=== PATIENT | male | born 1940 | race Caucasian/White ===

== ENCOUNTER 2016-11-01 10:20 | Emergency (ER) | payer MEDICARE, BC ==
[2016-11-01 12:09] LABS: Hematocrit 38 % (42-52); Hemoglobin 12.4 g/dl (14.0-18.0); Mean Corpuscular HGB Conc 33 g/dl (31-36); Mean Corpuscular Hemoglobin 30 pg (27-31); Mean Corpuscular Volume 91 fL (80-94); Mean Platelet Volume 10 um3 (7.4-10.4); Red Blood Count 4.13 10^6/ul (4.0-5.4); Red Cell Distribution Width 14 % (10.5-15); White Blood Count 7.4 10^3/ul (3.5-10.8)
[2016-11-01 12:19] LABS: Albumin 3.5 g/dL (3.2-5.2); BUN/Creatinine Ratio 10.4 (8-20); Calcium 8.8 mg/dL (8.6-10.3); EGFR Non-African American 98.8 (>60); Globulin 2.5 g/dL (2-4); Potassium 3.7 mmol/L (3.5-5.0); Total Bilirubin 0.8 mg/dL (0.2-1.0)
[2016-11-01 12:59] VITALS: BP 154/69
--- NOTE | 2016-11-03 07:50 | ED ---
Ady Sparks Benjamin, scribed for Santana Tijerina MD on 11/01/16 at 1217 . GI/ HPI - HPI Summary HPI Summary: 76yo male c/o constant bright red rectal bleeding for 2 days. Pt states very mild pain, and denies any black or bloody stool. Pt does have hx of hemorrhoids in the past, but states that todays symptoms are different than his previous hemorrhoids. Pt also have Hx of DM, CHF, and IRR. - History of Current Complaint Chief Complaint: EDGIBleed Time Seen by Provider: 11/01/16 11:02 Stated Complaint: RECTAL BLEEDING Hx Obtained From: Patient, Family/Medicaid Collection Specialist - Onset/Duration: Started Days Ago - 2 days, Still Present Timing: Constant Severity: Mild Current Severity: Mild Pain Intensity: 2 Location of Pain: Rectal, Anal Associated Signs and Symptoms: Positive: Bright Red Blood w/Stool - Additional Pertinent History Primary Care Physician: NICHOLAS - Allergy/Home Medications Allergies/Adverse Reactions: Allergies Allergy/AdvReac Type Severity Reaction Status Date / Time Penicillins [PCN] Allergy Unknown Verified 11/01/16 10:26 Reaction Details Home Medications: Home Medications Hydrochlorothiazide TAB* [Hydrodiuril TAB*] 25 mg PO DAILY 11/01/16 [History Confirmed 11/01/16] Lisinopril [Lisinopril 40 MG-] 40 mg PO DAILY 11/01/16 [History Confirmed ] Metoprolol Tartrate TAB* [Lopressor TAB*] 50 mg PO BID 11/01/16 [History Confirmed 11/01/16] metFORMIN* [Glucophage*] 850 mg PO BID 11/01/16 [History Confirmed 11/01/16] PMH/Surg Hx/FS Hx/Imm Hx Endocrine/Hematology History: Reports: Hx Diabetes Cardiovascular History: Reports: Hx Coronary Artery Disease, Hx Hypercholesterolemia, Hx Hypertension, Other Cardiovascular Problems/Disorders - irregular heart beat, declined cardiac stents Denies: Hx Congestive Heart Failure Respiratory History: Reports: Hx Pneumonia History: Reports: Hx Kidney Stones Sensory History: Reports: Hx Contacts or Glasses Opthamlomology History: Reports: Hx Contacts or Glasses Infectious Disease History: No Infectious Disease History: Denies: Traveled Outside the [place] in Last 30 Days - Family History Known Family History: Positive: Cardiac Disease - >55, Other - hypotension Negative: Hypertension, Diabetes - Social History Occupation: Retired Lives: With Family Alcohol Use: None Hx Substance Use: No Substance Use Type: Reports: None Hx Tobacco Use: No Smoking Status (MU): Never Smoked Tobacco Review of Systems Constitutional: Negative Eyes: Negative ENT: Negative Cardiovascular: Negative Respiratory: Negative Positive: Other - bright red rectal bleeding Genitourinary: Negative Musculoskeletal: Negative Skin: Negative Neurological: Negative Psychological: Normal All Other Systems Reviewed And Are Negative: Yes Physical Exam Triage Information Reviewed: Yes Vital Signs On Initial Exam: Initial Vitals Temp Pulse Resp BP Pulse Ox 99.2 F 63 16 153/74 100 11/01/16 10:26 11/01/16 10:26 11/01/16 10:26 11/01/16 10:26 11/01/16 10:26 Vital Signs Reviewed: Yes Appearance: Positive: Well-Appearing, No Pain Distress, Well-Nourished Skin: Positive: Warm, Skin Color Reflects Adequate Perfusion, Dry Head/Face: Positive: Normal Head/Face Inspection Eyes: Positive: Normal ENT: Positive: Normal ENT inspection Neck: Positive: Supple, Nontender Respiratory/Lung Sounds: Positive: Clear to Auscultation, Breath Sounds Present Abdomen Description: Positive: Nontender, Soft - RECTAL EXAM: bleeding internal hemorrhoids, Other: Bowel Sounds: Positive: Present Musculoskeletal: Positive: Normal, Strength/ROM Intact Neurological: Positive: Normal, Sensory/Motor Intact, Alert, Oriented to Person Place, Time, CN Intact II-III, Reflexes Intact Psychiatric: Positive: Affect/Mood Appropriate - Heri Coma Scale Coma Scale Total: 15 Diagnostics - Vital Signs Vital Signs Temp Pulse Resp BP Pulse Ox 11/01/16 11:03 57 96 11/01/16 11:01 138/67 11/01/16 10:26 99.2 F 63 16 153/74 100 - Laboratory Lab Results: Lab Results 11/01/16 11/01/16 11/01/16 Range/Units 11:00 11:00 11:00 WBC 7.4 (3.5-10.8) 10^3/ul RBC 4.13 (4.0-5.4) 10^6/ul Hgb 12.4 L (14.0-18.0) g/dl Hct 38 L (42-52) % MCV 91 (80-94) fL MCH 30 (27-31) pg MCHC 33 (31-36) g/dl RDW 14 (10.5-15) % Plt Count 241 (150-450) 10^3/ul MPV 10 (7.4-10.4) um3 Neut % (Auto) 75.1 (38-83) % Lymph % (Auto) 12.3 L (25-47) % [place] % (Auto) 10.7 H (1-9) % Eos % (Auto) 1.2 (0-6) % Baso % (Auto) 0.7 (0-2) % Absolute Neuts (auto) 5.6 (1.5-7.7) 10^3/ul Absolute Lymphs (auto) 0.9 L (1.0-4.8) 10^3/ul Absolute Monos (auto) 0.8 (0-0.8) 10^3/ul Absolute Eos (auto) 0.1 (0-0.6) 10^3/ul Absolute Basos (auto) 0.1 (0-0.2) 10^3/ul Absolute Nucleated RBC 0.01 10^3/ul Nucleated RBC % 0.1 INR (Anticoag Therapy) 1.21 H (0.89-1.11) Sodium 135 (133-145) mmol/L Potassium 3.7 (3.5-5.0) mmol/L Chloride 104 (101-111) mmol/L Carbon Dioxide 27 (22-32) mmol/L Anion Gap 4 (2-11) mmol/L BUN 8 (6-24) mg/dL Creatinine 0.77 (0.67-1.17) mg/dL Est GFR ( Amer) 127.0 (>60) Est GFR (Non-Af Amer) 98.8 (>60) BUN/Creatinine Ratio 10.4 (8-20) Glucose 104 H (70-100) mg/dL Calcium 8.8 (8.6-10.3) mg/dL Total Bilirubin 0.80 (0.2-1.0) mg/dL AST 13 (13-39) U/L ALT 11 (7-52) U/L Alkaline Phosphatase 83 (34-104) U/L Total Protein 6.0 L (6.4-8.9) g/dL Albumin 3.5 (3.2-5.2) g/dL Globulin 2.5 (2-4) g/dL Albumin/Globulin Ratio 1.4 (1-3) Result Diagrams: 11/01/16 11:00 11/01/16 11:00 Lab Statement: Any lab studies that have been ordered have been reviewed, and results considered in the medical decision making process. GIGU Course/Dx - Course Course Of Treatment: Mr. Black presented with an internal hemorrhoid that persistently bled here in the ED. Dr. West was contacted and agreed to see him in the office. He hadn't dropped his H&H much and was stable and was D/ C'd to F/U in the office where Dr. West was better able to band him if necessary. - Diagnoses Provider Diagnoses: Internal bleeding hemorrhoids - Physician Notifications Discussed Care Of Patient With: Dr. West (Surgery) @[id number]. Discharge - Discharge Plan Condition: Stable Disposition: HOME Patient Education Materials: Hemorrhoids (ED), Rectal Bleeding (ED) Referrals: Erik West MD [Medical Doctor] - (Please follow up with Dr. West today. ) Jayme Pompa MD [Primary Care Provider] - The documentation as recorded by the Ady lewis Benjamin accurately reflects the service I personally performed and the decisions made by , Santana Tijerina MD.
== END 2016-11-01 13:28 | disposition home or self-care (01) ==
LOC: ED 10:20
DX: K64.8 Other hemorrhoids (principal)
CPT/HCPCS: 36415; 80053; 85025; 85610; 99282

== ENCOUNTER 2017-09-11 01:30 | Emergency (ER) | payer MEDICARE, BC ==
[2017-09-11 02:31] LABS: Hematocrit 43 % (42-52); Hemoglobin 14.5 g/dl (14.0-18.0); Mean Corpuscular HGB Conc 34 g/dl (31-36); Mean Corpuscular Hemoglobin 30 pg (27-31); Mean Corpuscular Volume 89 fL (80-94); Mean Platelet Volume 9 um3 (7.4-10.4); Red Blood Count 4.83 10^6/ul (4.0-5.4); Red Cell Distribution Width 15 % (10.5-15); White Blood Count 6.9 10^3/ul (3.5-10.8)
[2017-09-11 02:44] LABS: Albumin 3.5 g/dL (3.2-5.2); BUN/Creatinine Ratio 13.9 (8-20); Calcium 8.7 mg/dL (8.6-10.3); EGFR Non-African American 95.6 (>60); Globulin 2.9 g/dL (2-4); Magnesium 1.4 mg/dL (1.9-2.7); Potassium 3.6 mmol/L (3.5-5.0); Total Bilirubin 0.8 mg/dL (0.2-1.0); Total Protein 6.4 g/dL (6.4-8.9)
[2017-09-11 02:46] LABS: Troponin I 0.03 ng/mL (<0.04)
[2017-09-11] MEDS ORDERED: Acetaminophen TAB* 325 MG PO ONE (02:58)
[2017-09-11 02:59] LABS: TSH (Thyroid Stimulating Horm) 1.29 mcIU/mL (0.34-5.60)
[2017-09-11 05:17] LABS: Urine Bilirubin Negative (Negative); Urine Glucose 1+(50 mg/dL) (Negative); Urine Nitrite Negative (Negative)
--- NOTE | 2017-09-11 05:37 | ED ---
Machelle Sparks Thomas, scribed for Sowmya Michaels MD on 09/11/17 at 0206 . Complex/Multi-Sys Presentation - HPI Summary HPI Summary: The pt is a 77 y/o M BIBA c/o generalized weakness and a near-syncopal episode this evening. The patient was in sleeping in his chair and was woke up by his when I couldnt get up from my chair. I was unable to stand up. Pt additionally c/o a cough. Pt denies any pain, fever, chills, dysuria, and hematuria. PMHx includes CVA about a year ago. During this syncopal episode, the patient fell and had LOC for some time. The patient has some residual balance deficits from this stroke. He lives with his . Sometimes, he uses a cane to get around. - History Of Current Complaint Chief Complaint: EDSyncope Time Seen by Provider: 09/11/17 01:46 Hx Obtained From: Patient Onset/Duration: Lasting Hours - this evening, Still Present Timing: Constant Aggravating Factor(s): None. Alleviating Factor(s): None. Associated Signs And Symptoms: Positive: Weakness - generalized, Other - Near- syncope, cough; NEGATIVE: pain, fever, chills, dysuria, hematuria - Allergies/Home Medications Allergies/Adverse Reactions: Allergies Allergy/AdvReac Type Severity Reaction Status Date / Time Penicillins [PCN] Allergy Unknown Verified 12/07/16 09:03 Reaction Details PMH/Surg Hx/FS Hx/Imm Hx Previously Healthy: No Endocrine/Hematology History: Reports: Hx Diabetes Cardiovascular History: Reports: Hx Coronary Artery Disease, Hx Hypercholesterolemia, Hx Hypertension, Other Cardiovascular Problems/Disorders - irregular heart beat, declined cardiac stents Denies: Hx Congestive Heart Failure Respiratory History: Reports: Hx Pneumonia History: Reports: Hx Kidney Stones Sensory History: Reports: Hx Contacts or Glasses Opthamlomology History: Reports: Hx Contacts or Glasses Infectious Disease History: No Infectious Disease History: Denies: Traveled Outside the [place] in Last 30 Days - Family History Known Family History: Positive: Cardiac Disease - >55, Other - hypotension Negative: Hypertension, Diabetes - Social History Alcohol Use: None Hx Substance Use: No Substance Use Type: Reports: None Hx Tobacco Use: No Smoking Status (MU): Never Smoked Tobacco Review of Systems Positive: Other - Generalized weakness. Negative: Fever, Chills Positive: Cough Negative: dysuria, hematuria Positive: Syncope - near All Other Systems Reviewed And Are Negative: Yes Physical Exam - Summary Physical Exam Summary: VITAL SIGNS: Reviewed. GENERAL: Patient is a well-developed and nourished male who is lying comfortable in the stretcher. Patient is not in any acute respiratory distress. HEAD AND FACE: No signs of trauma. No ecchymosis, hematomas or skull depressions. No sinus tenderness. EYES: PERRLA, EOMI x 2, No injected conjunctiva, no nystagmus. EARS: Hearing grossly intact. Ear canals and tympanic membranes are within normal limits. MOUTH: Oropharynx within normal limits. NECK: Supple, trachea is midline, no adenopathy, no JVD, no carotid bruit, no c- spine tenderness, neck with full ROM. CHEST: Symmetric, no tenderness at palpation LUNGS: Clear to auscultation bilaterally. No wheezing or crackles. CVS: Regular rate and rhythm, S1 and S2 present, no murmurs or gallops appreciated. ABDOMEN: Soft, non-tender. No signs of distention. No rebound no guarding, and no masses palpated. Bowel sounds are normal. EXTREMITIES: He has trace bilateral lower extremity pitting edema. FROM in all major joints, no cyanosis or clubbing. NEURO: Alert and oriented x 3. No acute neurological deficits. Speech is normal and follows commands. SKIN: Dry and warm Triage Information Reviewed: Yes Vital Signs On Initial Exam: Initial Vitals Temp Pulse Resp BP Pulse Ox 98 F 88 18 139/55 96 09/11/17 01:34 09/11/17 01:34 09/11/17 01:34 09/11/17 01:34 09/11/17 01:34 Vital Signs Reviewed: Yes Diagnostics - Vital Signs Vital Signs Temp Pulse Resp BP Pulse Ox 09/11/17 01:34 98 F 88 18 139/55 96 - Laboratory Result Diagrams: 09/11/17 02:10 09/11/17 02:10 Lab Statement: Any lab studies that have been ordered have been reviewed, and results considered in the medical decision making process. - Radiology CXR Xray Interpretation: No Acute Changes - Elevation of the left hemidiaphragm. No acute changes. Radiology Interpretation Completed By: ED Physician - CT CT Brain CT Interpretation: No Acute Changes - No acute brain parenchymal abnormality. No hemorrhage, mass or acute territorial infarct. Atrophy and chronic small vessel ischemic changes. Minimal mucoperiosteal thickening appearing in the ethdmoid sinuses since 10/08/16. Visualized mastoid air cells clear. ED physician has reviewed this report and agrees. CT Interpretation Completed By: Radiologist - EKG 01:32 Cardiac Rate: NL EKG Rhythm: Sinus Rhythm Ectopy: PVCs, PACs EKG Interpretation: 91 BPM. Normal axis. Nonspecific T-wave changes. Re-Evaluation - Re-Evaluation First Eval Re-Evaluation Time: 05:26 Change: Unchanged Comment: He is feeling better. I discussed with him the labs and scans. Complex Multi-Symp Course/Dx Assessment/Plan: The pt is a 77 y/o M BIBA c/o generalized weakness and a near- syncopal episode this evening. The patient was in sleeping in his chair and was woke up by his when I couldnt get up from my chair. I was unable to stand up. Pt additionally c/o a cough. Pt denies any pain, fever, chills, dysuria, and hematuria. PMHx includes CVA about a year ago. During this syncopal episode, the patient fell and had LOC for some time. The patient has some residual balance deficits from this stroke. He lives with his . Sometimes, he uses a cane to get around. In the ED course the patient was given acetaminophen. Bloodwork and UA were obtained. CT Brain, CXR, and EKG were obtained. On re-evaluation, the patient is feeling better. The patient is diagnosed with viral illness. The patient is instructed to follow up with primary care. Patient is agreeable with this plan. - Diagnoses Provider Diagnoses: Viral illness Discharge - Discharge Plan Condition: Stable Disposition: HOME Patient Education Materials: Viral Syndrome (ED) Referrals: Jayme Pompa MD [Primary Care Provider] - 3 Days Additional Instructions: Follow up with your primary care provider in 3 days. Return to the emergency department for any new or worsening symptoms. The documentation as recorded by the Machelle lewis Thomas accurately reflects the service I personally performed and the decisions made by me, Sowmya Michaels MD.
[2017-09-11 05:51] VITALS: BP 140/80
--- NOTE | 2017-09-11 07:45 | RAD ---
HISTORY: Weakness COMPARISONS: December 07, 2016 TECHNIQUE: Multiple contiguous axial CT scans were obtained of the head without intravenous contrast. FINDINGS: HEMORRHAGE/INFARCT: There is no hemorrhage or acute infarct. MASSES/SHIFT: There is no mass or shift. EXTRA-AXIAL SPACES: There are no extra-axial fluid collections. SULCI AND VENTRICLES: Again noted is diffuse enlargement of the sulci and ventricles with somewhat disproportionate enlargement of the ventricular system. CEREBRUM: There are no focal parenchymal abnormalities. BRAINSTEM: There are no focal parenchymal abnormalities. CEREBELLUM: There are no focal parenchymal abnormalities. VESSELS: The vessels are grossly normal. PARANASAL SINUSES: There is minimal mucosal thickening of the ethmoid air cells. ORBITS: The orbits are unremarkable. BONES AND SOFT TISSUE: No bone or soft tissue abnormalities are noted. OTHER: None IMPRESSION: 1. NO ACUTE INTRACRANIAL PATHOLOGY. 2. AGAIN NOTED IS DIFFUSE ENLARGEMENT OF THE SULCI AND VENTRICLES WITH SOMEWHAT DISPROPORTIONATE ENLARGEMENT OF THE VENTRICULAR SYSTEM WITH SUSPECTED THE SULCI SIMILAR TO THE PREVIOUS EXAMINATIONS.
--- NOTE | 2017-09-11 07:48 | RAD ---
HISTORY: Weakness COMPARISONS: October 08, 2016 VIEWS: 1: frontal portable view of the chest at 4 5:00 AM FINDINGS: LINES AND TUBES: None. CARDIOMEDIASTINAL SILHOUETTE: The cardiomediastinal silhouette is normal for portable technique. PLEURA: The costophrenic angles are sharp. There is stable mild elevation of the left hemidiaphragm.. LUNG PARENCHYMA: The lungs are clear. ABDOMEN: The upper abdomen is clear. There is no subphrenic gas. BONES AND SOFT TISSUES: No bone or soft tissue abnormalities are noted. IMPRESSION: NO ACTIVE CARDIOPULMONARY DISEASE.
== END 2017-09-11 05:53 | disposition home or self-care (01) ==
LOC: ED 01:30
DX: B34.9 Viral infection, unspecified (principal); Z86.73 Personal history of transient ischemic attack (TIA), and cerebral infarction without residual deficits; Z88.0 Allergy status to penicillin; E11.9 Type 2 diabetes mellitus without complications; I25.10 Atherosclerotic heart disease of native coronary artery without angina pectoris; E78.00 Pure hypercholesterolemia, unspecified; Z87.442 Personal history of urinary calculi
CPT/HCPCS: 36415; 70450; 71010; 80053; 81003; 83605; 83735; 84443; 84484; 85025; 85610; 85730; 87040; 93005; 99283; A9270-GY

== ENCOUNTER 2018-02-16 00:53 | Emergency (ER) | payer MEDICARE, BC ==
[2018-02-16] MEDS ORDERED: NS 0.9% 1000 ML*IV.FLUID IV ONE (01:15)
[2018-02-16] MEDS ORDERED: Albuterol/Ipratropium NEB.SOL* Albuterol 2.5 MG/Ipratropium 0.5 MG 3 ML INH ONE (01:19)
[2018-02-16 01:33] LABS: ABS Basophils 0 10^3/ul (0-0.2); ABS Eosinophils 0 10^3/ul (0-0.6); ABS Lymphocytes 0.7 10^3/ul (1.0-4.8); ABS Monocytes 1.1 10^3/ul (0-0.8); ABS Neutrophils 12.3 10^3/ul (1.5-7.7); ABS Nucleated RBC 0 10^3/ul; Eosinophil % 0.3 % (0-6); Hematocrit 42 % (42-52); Hemoglobin 14.4 g/dl (14.0-18.0); Mean Corpuscular HGB Conc 34 g/dl (31-36); Mean Corpuscular Hemoglobin 31 pg (27-31); Mean Corpuscular Volume 91 fL (80-94); Mean Platelet Volume 9.9 um3 (7.4-10.4); Nucleated Red Blood Cells % 0; Platelet Count 183 10^3/ul (150-450); Red Blood Count 4.65 10^6/ul (4.0-5.4); Red Cell Distribution Width 14 % (10.5-15); White Blood Count 14.1 10^3/ul (3.5-10.8)
[2018-02-16 01:42] LABS: INR 1.13 (0.77-1.02)
[2018-02-16 01:45] LABS: EGFR Non-African American 95.6 (>60)
[2018-02-16] MEDS ORDERED: Levofloxacin 750 MG IVPREMIX(* 750 MG/150 ML BAG IVPB ONE (02:10)
[2018-02-16] MEDS ORDERED: methylPREDNISolone 125 MG* 2 ML VIAL IV ONE (02:38)
[2018-02-16 03:20] LABS: Urine Appearance Clear; Urine Blood Negative (Negative); Urine Color Yellow; Urine Ketones 1+ (Negative); Urine Protein Negative (Negative); Urine Specific Gravity 1.014 (1.010-1.030); Urine Urobilinogen Negative (Negative)
[2018-02-16] MEDS ORDERED: Iodixanol* (CONTRAST) 320 MG/ML 100 ML SDV IV ONE (04:54)
[2018-02-16 07:28] VITALS: BP 138/73
--- NOTE | 2018-02-16 08:18 | ED ---
Ramo Sparks Tiffany, scribed for Argelia Hill MD on 02/16/18 at 0104 . Complex/Multi-Sys Presentation - HPI Summary HPI Summary: The patient is a 77 year old male BIBA complains of weakness since 00:30 today. Symptoms aggravated by nothing. Symptoms alleviated by nothing. Patient reports shortness of breath and cough that began "probably a month or two ago, worse tonight, when it woke him from sleep." States he got up from bed to go to bathroom and felt slower than normal. Glucose on triage is 164. 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 - History Of Current Complaint Time Seen by Provider: 02/16/18 00:56 Hx Obtained From: Patient, Family/Network Systems Consultant - arrives later and adds to hx Onset/Duration: Gradual Onset - one to two months ago, Lasting Hours - Since 00: 30 today, Still Present Timing: Constant Severity Currently: Moderate Severity Initially: Moderate Location: Negative Aggravating Factor(s): Nothing Alleviating Factor(s): Nothing Associated Signs And Symptoms: Positive: SOB, Cough - Allergies/Home Medications Allergies/Adverse Reactions: Allergies Allergy/AdvReac Type Severity Reaction Status Date / Time Penicillins Allergy Hives/Diff. Verified 02/16/18 01:11 Breathing/I tching PMH/Surg Hx/FS Hx/Imm Hx Previously Healthy: No Endocrine/Hematology History: Reports: Hx Diabetes Cardiovascular History: Reports: Hx Congestive Heart Failure, Hx Coronary Artery Disease, Hx Hypercholesterolemia, Hx Hypertension, Other Cardiovascular Problems/Disorders - irregular heart beat, declined cardiac stents (this info is prepopulated) Respiratory History: Reports: Hx Pneumonia History: Reports: Hx Kidney Stones Sensory History: Reports: Hx Contacts or Glasses Opthamlomology History: Reports: Hx Contacts or Glasses Neurological History: Reports: Hx CVA - brainstem per pt - Surgical History Surgery Procedure, Year, and Place: None Infectious Disease History: No - Family History Known Family History: Positive: Cardiac Disease - >55 Negative: Hypertension, Diabetes - Social History Lives: With Family - With Alcohol Use: None Hx Substance Use: No Substance Use Type: Reports: None Hx Tobacco Use: No Smoking Status (MU): Never Smoked Tobacco Review of Systems Positive: Other - generalized weakness Cardiovascular: Negative Positive: Shortness Of Breath, Cough Gastrointestinal: Negative Musculoskeletal: Negative Skin: Negative Positive: Weakness - generalized Psychological: Normal All Other Systems Reviewed And Are Negative: Yes Physical Exam - Summary Physical Exam Summary: Appearance: Ill-appearing, moderate pain distress, Well-nourished. Patient is generally weak. Able to speak full sentences Skin: Warm, color reflects adequate perfusion Head: Normal Head/Face inspection Eyes: Conjunctiva clear, PERRL EOMI ENT: Normal inspection, pharynx clear Neck: Supple, no nodes, no JVD. Respiratory: Inspiratory wheezes in R base. Cardio: RRR, No murmur, pulses normal, brisk capillary refill Abdomen: soft, nontender, no masses Bowel sounds: present Musculoskeletal: Strength Intact/ ROM intact. No calf tenderness. No edema. Psychological: Normal Neuro: Alert, muscle tone normal, no focal deficit, moves all extremities well. Triage Information Reviewed: Yes Vital Signs On Initial Exam: Initial Vitals Temp Pulse Resp BP Pulse Ox 100.1 F 86 16 153/70 93 02/16/18 01:09 02/16/18 01:09 02/16/18 01:09 02/16/18 01:09 02/16/18 01:09 Vital Signs Reviewed: Yes Diagnostics - Vital Signs Vital Signs Temp Pulse Resp BP Pulse Ox 02/16/18 01:45 84 18 95 02/16/18 01:15 93 02/16/18 01:09 100.1 F 86 16 153/70 93 - Laboratory Lab Results: Lab Results 02/16/18 02/16/18 02/16/18 Range/Units 01:00 01:00 01:00 WBC 14.1 H (3.5-10.8) 10^3/ul RBC 4.65 (4.0-5.4) 10^6/ul Hgb 14.4 (14.0-18.0) g/dl Hct 42 (42-52) % MCV 91 (80-94) fL MCH 31 (27-31) pg MCHC 34 (31-36) g/dl RDW 14 (10.5-15) % Plt Count 183 (150-450) 10^3/ul MPV 9.9 (7.4-10.4) um3 Neut % (Auto) 86.8 H (38-83) % Lymph % (Auto) 5.0 L (25-47) % [place] % (Auto) 7.8 H (0-7) % Eos % (Auto) 0.3 (0-6) % Baso % (Auto) 0.1 (0-2) % Absolute Neuts (auto) 12.3 H (1.5-7.7) 10^3/ul Absolute Lymphs (auto) 0.7 L (1.0-4.8) 10^3/ul Absolute Monos (auto) 1.1 H (0-0.8) 10^3/ul Absolute Eos (auto) 0 (0-0.6) 10^3/ul Absolute Basos (auto) 0 (0-0.2) 10^3/ul Absolute Nucleated RBC 0 10^3/ul Nucleated RBC % 0 ESR Pending INR (Anticoag Therapy) (0.77-1.02) APTT (26.0-36.3) seconds VBG pH (7.33-7.43) VBG pCO2 (41-51) mmHg VBG pO2 (35-45) mmHg VBG HCO3 (24-28) mmol/L VBG O2 Saturation (70-80) % VBG Base Excess (0-4) Sodium 133 L (139-145) mmol/L Potassium 3.9 (3.5-5.0) mmol/L Chloride 101 (101-111) mmol/L Carbon Dioxide 23 (22-32) mmol/L Anion Gap 9 (2-11) mmol/L BUN 11 (6-24) mg/dL Creatinine 0.79 (0.67-1.17) mg/dL Est GFR ( Amer) 123.0 (>60) Est GFR (Non-Af Amer) 95.6 (>60) BUN/Creatinine Ratio 13.9 (8-20) Glucose 162 H (70-100) mg/dL Lactic Acid (0.5-2.0) mmol/L Calcium 8.8 (8.6-10.3) mg/dL Total Bilirubin 0.70 (0.2-1.0) mg/dL AST 17 (13-39) U/L ALT 20 (7-52) U/L Alkaline Phosphatase 110 H (34-104) U/L Total Creatine Kinase 42 (10-223) U/L Troponin I 0.01 (<0.04) ng/mL C-Reactive Protein 33.86 H (< 5.00) mg/L B-Natriuretic Peptide 155 H ( - 100) pg/mL Total Protein 6.6 (6.4-8.9) g/dL Albumin 3.5 (3.2-5.2) g/dL Globulin 3.1 (2-4) g/dL Albumin/Globulin Ratio 1.1 (1-3) Influenza A (Rapid) (Negative) Influenza B (Rapid) (Negative) 02/16/18 02/16/18 02/16/18 Range/Units 01:00 01:00 01:25 WBC (3.5-10.8) 10^3/ul RBC (4.0-5.4) 10^6/ul Hgb (14.0-18.0) g/dl Hct (42-52) % MCV (80-94) fL MCH (27-31) pg MCHC (31-36) g/dl RDW (10.5-15) % Plt Count (150-450) 10^3/ul MPV (7.4-10.4) um3 Neut % (Auto) (38-83) % Lymph % (Auto) (25-47) % [place] % (Auto) (0-7) % Eos % (Auto) (0-6) % Baso % (Auto) (0-2) % Absolute Neuts (auto) (1.5-7.7) 10^3/ul Absolute Lymphs (auto) (1.0-4.8) 10^3/ul Absolute Monos (auto) (0-0.8) 10^3/ul Absolute Eos (auto) (0-0.6) 10^3/ul Absolute Basos (auto) (0-0.2) 10^3/ul Absolute Nucleated RBC 10^3/ul Nucleated RBC % ESR INR (Anticoag Therapy) 1.13 H (0.77-1.02) APTT 31.4 (26.0-36.3) seconds VBG pH 7.43 (7.33-7.43) VBG pCO2 36 L (41-51) mmHg VBG pO2 46 H (35-45) mmHg VBG HCO3 24.5 (24-28) mmol/L VBG O2 Saturation 85.4 H (70-80) % VBG Base Excess 0 (0-4) Sodium (139-145) mmol/L Potassium (3.5-5.0) mmol/L Chloride (101-111) mmol/L Carbon Dioxide (22-32) mmol/L Anion Gap (2-11) mmol/L BUN (6-24) mg/dL Creatinine (0.67-1.17) mg/dL Est GFR ( Amer) (>60) Est GFR (Non-Af Amer) (>60) BUN/Creatinine Ratio (8-20) Glucose (70-100) mg/dL Lactic Acid 0.9 (0.5-2.0) mmol/L Calcium (8.6-10.3) mg/dL Total Bilirubin (0.2-1.0) mg/dL AST (13-39) U/L ALT (7-52) U/L Alkaline Phosphatase (34-104) U/L Total Creatine Kinase (10-223) U/L Troponin I (<0.04) ng/mL C-Reactive Protein (< 5.00) mg/L B-Natriuretic Peptide ( - 100) pg/mL Total Protein (6.4-8.9) g/dL Albumin (3.2-5.2) g/dL Globulin (2-4) g/dL Albumin/Globulin Ratio (1-3) Influenza A (Rapid) (Negative) Influenza B (Rapid) (Negative) 02/16/18 Range/Units 01:33 WBC (3.5-10.8) 10^3/ul RBC (4.0-5.4) 10^6/ul Hgb (14.0-18.0) g/dl Hct (42-52) % MCV (80-94) fL MCH (27-31) pg MCHC (31-36) g/dl RDW (10.5-15) % Plt Count (150-450) 10^3/ul MPV (7.4-10.4) um3 Neut % (Auto) (38-83) % Lymph % (Auto) (25-47) % [place] % (Auto) (0-7) % Eos % (Auto) (0-6) % Baso % (Auto) (0-2) % Absolute Neuts (auto) (1.5-7.7) 10^3/ul Absolute Lymphs (auto) (1.0-4.8) 10^3/ul Absolute Monos (auto) (0-0.8) 10^3/ul Absolute Eos (auto) (0-0.6) 10^3/ul Absolute Basos (auto) (0-0.2) 10^3/ul Absolute Nucleated RBC 10^3/ul Nucleated RBC % ESR INR (Anticoag Therapy) (0.77-1.02) APTT (26.0-36.3) seconds VBG pH (7.33-7.43) VBG pCO2 (41-51) mmHg VBG pO2 (35-45) mmHg VBG HCO3 (24-28) mmol/L VBG O2 Saturation (70-80) % VBG Base Excess (0-4) Sodium (139-145) mmol/L Potassium (3.5-5.0) mmol/L Chloride (101-111) mmol/L Carbon Dioxide (22-32) mmol/L Anion Gap (2-11) mmol/L BUN (6-24) mg/dL Creatinine (0.67-1.17) mg/dL Est GFR ( Amer) (>60) Est GFR (Non-Af Amer) (>60) BUN/Creatinine Ratio (8-20) Glucose (70-100) mg/dL Lactic Acid (0.5-2.0) mmol/L Calcium (8.6-10.3) mg/dL Total Bilirubin (0.2-1.0) mg/dL AST (13-39) U/L ALT (7-52) U/L Alkaline Phosphatase (34-104) U/L Total Creatine Kinase (10-223) U/L Troponin I (<0.04) ng/mL C-Reactive Protein (< 5.00) mg/L B-Natriuretic Peptide ( - 100) pg/mL Total Protein (6.4-8.9) g/dL Albumin (3.2-5.2) g/dL Globulin (2-4) g/dL Albumin/Globulin Ratio (1-3) Influenza A (Rapid) Negative (Negative) Influenza B (Rapid) Negative (Negative) Result Diagrams: 02/16/18 01:00 02/16/18 01:00 Lab Statement: Any lab studies that have been ordered have been reviewed, and results considered in the medical decision making process. - Radiology CXR Radiology Interpretation Completed By: ED Physician - interstitial edema, no definite infiltrate - CT Chest CT Interpretation Completed By: Radiologist - No pulmonary embolism visualized. Right lower lobe consolidation. ED physician has reviewed this report. - EKG 0209 Cardiac Rate: NL EKG Rhythm: Sinus Rhythm - [address] Segment: Non-Specific Ectopy: None EKG Interpretation: nml AVIVCT, nml QTc. [place] -5. EKG Comparison: No Significant Change - Compared to 09/11/17 Re-Evaluation - Re-Evaluation First Eval Re-Evaluation Time: 02:05 Change: Unchanged Comment: Patient's lungs are clear. He has a deep congested cough. Pt's arrives and provides additional history. Plan is to admit pt for pneumonia. Hospitalist is with critical patient. Care will continue in the ED at this time. Second Eval Re-Evaluation Time: 04:41 Change: Improved Comment: Patient is no longer short of breath. Lungs are clear after neb, O2 and steroids. O2 sat 100%. Patient does not want to be admitted. Third Eval Re-Evaluation Time: 06:44 Change: Unchanged Comment: Wants to go home. O2 sat is 98% on oxygen 2L. Discussed with hospitalist. Can go home with close follow up. Fourth Eval Re-Evaluation Time: 06:56 Change: Unchanged Comment: Patient given lab results and advised to have definite follow up with Dr. Rai. Pt's will return to give him a ride home. Complex Multi-Symp Course/Dx Course Of Treatment: Allergies noted. High blood pressure noted. Patients medications reviewed this visit. CXR showed interstitial edema. Dr. Cannon (hospitalist) advises to order CT of chest. CT chest showed no PE or aortic abnormality, and right lower lobe consolidation. Patient feels better, O2 sat 98 % on oxygen 2 liters. Received IV solumedrol, Duoneb, IV fluids, oxygen, and IV levaquin, Patient wants to be discharged and agrees to discharge with treatment for pneumonia as outpatient. - Diagnoses Differential Diagnoses/HQI/PQRI: Other - COPD exacerbation, pneumonia, aortic dissection, PE Provider Diagnoses: Pneumonia - Physician Notifications Discussed Care Of Patient With: Darrell Cannon Time Discussed With Above Provider: 04:35 Instructed by Provider To: Other - Dr. Cannon (hospitalist) advises that mediastinum is wide, that D-dimer is elevated so order CTA of chest. Discharge - Sign-Out/Discharge Documenting (check all that apply): Discharge/Admit/Transfer - discharge - Discharge Plan Condition: Stable Disposition: HOME Prescriptions: Albuterol HFA INHALER* [Ventolin HFA Inhaler*] 1 - 2 puff INH Q4H PRN #1 mdi PRN Reason: Sob/Wheezing Levofloxacin TAB* [Levaquin TAB*] 750 mg PO DAILY #10 tab predniSONE TAB* [Deltasone TAB*] 40 mg PO DAILY #10 tab Patient Education Materials: Pneumonia (ED) Referrals: Deric Rai DO [Primary Care Provider] - 2 Days Additional Instructions: We have given you a copy of your labs. The CTA of your chest did not show a pulmonary embolus or an aortic problem, but it did show a right lower lobe pneumonia. You need definite follow up with DR. Rai in 2-3 days to make sure your oxygen level is still good, and that you are responding to the antibiotic, Levaquin. Take the Levaquin as directed once a day, starting today. You received your first dose of Levaquin IV in the ER. Take Prednisone 40mg daily for 5 days starting today. You were given solumedrol 125mg IV in the ER. Use the albuterol inhaler as directed as needed for shortness of breath or wheezing. Please return to the Emergency Department for any new or worsening symptoms. - Billing Disposition and Condition Condition: STABLE Disposition: HOME The documentation as recorded by the Ramo lewis Tiffany accurately reflects the service I personally performed and the decisions made by , Argelia Hill MD.
--- NOTE | 2018-02-16 09:04 | RAD ---
INDICATION: Shortness of breath, elevated d-dimer, widened mediastinum. COMPARISON: Chest radiograph of the same date TECHNIQUE: Multidetector CT images were obtained from the lung apices to the upper abdomen with 88 mL Visipaque 320 IV contrast. Pulmonary angiogram protocol. Multiplanar reformation including with maximum intensity projection. REPORT: Decreased lung volumes of the bilateral lower lobes with consolidation most likely representing atelectasis given volume loss however inflammatory infiltrates at the partially consolidated lower lobes are not excluded. No suspicious focal pulmonary lesions evident. Trace RIGHT pleural effusion. Negative for pneumothorax. Minimally enlarged 1.1 cm short axis diameter precarinal lymph node. Mild cardiomegaly. Negative for pericardial effusion. Coronary artery calcifications. Normal diameter thoracic aorta with minimal atherosclerotic plaque. Negative for dissection of the thoracic aorta. The CT pulmonary angiogram is significantly limited due to volume loss and motion artifact at the lower lobes including at the segmental arterial levels. No compelling pulmonary artery enlargement or filling defects to favor acute pulmonary embolism. Small hiatal hernia contributes to RIGHT lower lobe atelectasis. Cholelithiasis without additional CT abnormalities of the gallbladder. Calcified granuloma at the spleen. Negative for suspicious thoracic osseous lesions. IMPRESSION: 1. Decreased lung volumes of the bilateral lower lobes with consolidation most likely representing atelectasis given volume loss however inflammatory infiltrates at the partially consolidated lower lobes are not excluded. 2. The CT pulmonary angiogram is significantly limited due to volume loss and motion artifact at the lower lobes including at the segmental arterial levels. No compelling pulmonary artery enlargement or filling defects to favor acute pulmonary embolism. 3. Cardiomegaly and coronary artery calcifications. 4. Cholelithiasis.
--- NOTE | 2018-02-16 09:21 | RAD ---
Indication: Arrhythmia. Hypertension. Comparison: October 08, 2016 Technique: Upright AP 0140 hours Report: Mild prominence of the interstitial markings. Mild linear subsegmental atelectasis at the LEFT lung base and mild elevation of the LEFT hemidiaphragm. Mild cardiomegaly. Unremarkable central pulmonary vasculature. Mildly tortuous thoracic aorta. IMPRESSION: Mild LEFT basilar atelectasis. Mild cardiomegaly. No compelling evidence for pulmonary edema.
== END 2018-02-16 08:27 | disposition home or self-care (01) ==
LOC: ED 00:53
DX: J18.9 Pneumonia, unspecified organism (principal); R53.1 Weakness; K80.20 Calculus of gallbladder without cholecystitis without obstruction; E11.9 Type 2 diabetes mellitus without complications; I25.10 Atherosclerotic heart disease of native coronary artery without angina pectoris; I11.0 Hypertensive heart disease with heart failure; E78.00 Pure hypercholesterolemia, unspecified; Z87.442 Personal history of urinary calculi; Z86.73 Personal history of transient ischemic attack (TIA), and cerebral infarction without residual deficits; Z88.0 Allergy status to penicillin
CPT/HCPCS: 36415; 71045; 71275; 80053; 81003; 82550; 82803; 83605; 83880; 84484; 85025; 85379; 85610; 85652; 85730; 86140; 87040; 87502; 93005; 94640; 96365; 96375; 99284; A9270-GY; J2930; Q9967

== ENCOUNTER 2018-03-03 23:34 | Observation (INO) | payer MEDICARE, BC ==
[2018-03-04] MEDS ORDERED: NS 0.9% 1000 ML* 2,000 ML IV ONE (00:07)
--- NOTE | 2018-03-04 00:39 | ED ---
Syncope/Near Syncope - HPI Summary HPI Summary: 77M presents with syncopal episode today. He has a history of syncope. He states he was going to bed and felt a little off. He does not remember every getting to bed. His found him on the floor. His could not lift him so called EMS. He denies any chest pain or shortness breath. He denies any headache. He had pneumonia 2 weeks ago and was treated with levaquin and he states that he felt like it resolved. He states his cough has returned and is worst. He denies any known fever. He states he just feels fatigued. He denies any bowel pain. no Vomiting. Has been incontinent of stool which normally is not. History of previous stroke. No neck stiffness. No sore throat. He has an occasional cough. normal appetite today. no one else is sick. He states he has history of "bad lungs" but is not a smoker and no history of asthma or COPD. - History Of Current Complaint Chief Complaint: EDGeneral Time Seen by Provider: 03/03/18 23:59 - Allergies/Home Medications Allergies/Adverse Reactions: Allergies Allergy/AdvReac Type Severity Reaction Status Date / Time Penicillins AdvReac Intermediate Rash Verified 03/04/18 01:47 PMH/Surg Hx/FS Hx/Imm Hx Endocrine/Hematology History: Reports: Hx Diabetes Cardiovascular History: Reports: Hx Congestive Heart Failure, Hx Coronary Artery Disease, Hx Hypercholesterolemia, Hx Hypertension, Other Cardiovascular Problems/Disorders - irregular heart beat, declined cardiac stents (this info is prepopulated) Respiratory History: Reports: Hx Pneumonia History: Reports: Hx Kidney Stones Sensory History: Reports: Hx Contacts or Glasses Opthamlomology History: Reports: Hx Contacts or Glasses Neurological History: Reports: Hx CVA - brainstem per pt - Surgical History Surgery Procedure, Year, and Place: None - Immunization History Date of Tetanus Vaccine: unk Date of Influenza Vaccine: utd Infectious Disease History: No Infectious Disease History: Denies: Traveled Outside the [place] in Last 30 Days - Family History Known Family History: Positive: Cardiac Disease - >55, Other - hypotension Negative: Hypertension, Diabetes - Social History Alcohol Use: None Hx Substance Use: No Substance Use Type: Reports: None Hx Tobacco Use: No Smoking Status (MU): Never Smoked Tobacco Review of Systems Negative: Fever Negative: Chest Pain Negative: Shortness Of Breath Positive: Syncope All Other Systems Reviewed And Are Negative: Yes Physical Exam Triage Information Reviewed: Yes Vital Signs On Initial Exam: Initial Vitals Temp Pulse Resp BP Pulse Ox 99.8 F 99 20 162/88 96 03/03/18 23:37 03/03/18 23:37 03/03/18 23:37 03/03/18 23:37 03/03/18 23:37 Vital Signs Reviewed: Yes Appearance: Positive: Well-Appearing Skin: Positive: Warm, Dry Head/Face: Positive: Normal Head/Face Inspection Eyes: Positive: Normal, EOMI, TITO, Conjunctiva Clear ENT: Positive: Normal ENT inspection, Pharynx normal, TMs normal Neck: Positive: Supple, Nontender, No Lymphadenopathy Respiratory/Lung Sounds: Positive: Clear to Auscultation, Breath Sounds Present Cardiovascular: Positive: Normal, RRR Abdomen Description: Positive: Nontender, Soft Bowel Sounds: Positive: Present Musculoskeletal: Positive: Normal Neurological: Positive: Sensory/Motor Intact, Alert, Oriented to Person Place, Time, CN Intact II-III Psychiatric: Positive: Normal Diagnostics - Vital Signs Vital Signs Temp Pulse Resp BP Pulse Ox 03/04/18 00:00 88 17 93 03/03/18 23:53 91 20 154/75 96 03/03/18 23:37 99.8 F 99 20 162/88 96 - Laboratory Result Diagrams: 03/04/18 00:37 03/04/18 00:29 Lab Statement: Any lab studies that have been ordered have been reviewed, and results considered in the medical decision making process. - Radiology chest Xray Interpretation: No Acute Changes Radiology Interpretation Completed By: ED Physician - CT brain CT Interpretation: No Acute Changes CT Interpretation Completed By: Radiologist - EKG No standard instances Cardiac Rate: NL EKG Rhythm: Sinus Rhythm EKG Interpretation: sinus rhythm EKG Comparison: No Significant Change Course/Dx Course Of Treatment: 77M presents with syncopal episode today. He has a history of syncope. He states he was going to bed and felt a little off. He does not remember every getting to bed. His found him on the floor. His could not lift him so called EMS. He denies any chest pain or shortness breath. He denies any headache. He had pneumonia 2 weeks ago and he states that he felt like it resolved. He denies any known fever. He states he just feels fatigued. He denies any bowel pain. no Vomiting. Has been incontinent of stool. History of previous stroke. No neck stiffness. No sore throat. He has an occasional cough. normal appetite today. no one else is sick. On exam appears fatigued. Lungs clear to auscultation. Heart regular rate and rhythm. Abdomen soft nontender. Pharynx normal. EKG is similar to previous. wbc 23. chest xray similiar to previous. urine normal. will give dose of cefepime as has hives with PCN. infection is likely due to pneumonia. discussed with dr Harding who agrees to admit. - Diagnoses Differential Diagnosis/HQI/PQRI: Positive: Cerebral Vascular Accident, Dysrhythmia, Hypoglycemia, Hypovolemia Provider Diagnoses: Syncope, Pneumonia Discharge - Sign-Out/Discharge Documenting (check all that apply): Discharge/Admit/Transfer - Discharge Plan Condition: Stable Disposition: ADMITTED TO [facility] Referrals: Deric Rai DO [Primary Care Provider] - - Billing Disposition and Condition Condition: STABLE Disposition: [facility]
[2018-03-04 00:48] LABS: Hematocrit 42 % (42-52); Hemoglobin 13.9 g/dl (14.0-18.0); Mean Corpuscular HGB Conc 34 g/dl (31-36); Mean Corpuscular Hemoglobin 31 pg (27-31); Mean Corpuscular Volume 91 fL (80-94); Mean Platelet Volume 9.5 um3 (7.4-10.4); Platelet Count 200 10^3/ul (150-450); Red Blood Count 4.55 10^6/ul (4.0-5.4); Red Cell Distribution Width 14 % (10.5-15); White Blood Count 23.9 10^3/ul (3.5-10.8)
[2018-03-04 00:53] LABS: Urine Appearance Clear; Urine Blood 1+ (Negative); Urine Color Yellow; Urine Ketones Negative (Negative); Urine Protein Negative (Negative); Urine Specific Gravity 1.017 (1.010-1.030); Urine Urobilinogen Negative (Negative)
[2018-03-04 00:56] LABS: INR 1.14 (0.77-1.02)
[2018-03-04] MEDS ORDERED: NS 0.9% 1000 ML* 1,000 ML IV ONE (01:03)
[2018-03-04] MEDS ORDERED: Cefepime(*) 1 GM in NS 0.9% 50 ML* 50 ML IVPB ONE (01:13)
[2018-03-04 01:14] LABS: EGFR Non-African American 106.4 (>60)
[2018-03-04 01:25] LABS: ABS Basophils 0.1 10^3/ul (0-0.2); ABS Eosinophils 0 10^3/ul (0-0.6); ABS Lymphocytes 0.4 10^3/ul (1.0-4.8); ABS Monocytes 1.3 10^3/ul (0-0.8); ABS Neutrophils 22.1 10^3/ul (1.5-7.7); ABS Nucleated RBC 0 10^3/ul; Eosinophil % 0.1 % (0-6); Lymphocyte % 1.8 % (25-47); Nucleated Red Blood Cells % 0
[2018-03-04] MEDS ORDERED: Albuterol/Ipratropium NEB.SOL* Albuterol 2.5 MG/Ipratropium 0.5 MG 3 ML INH ONE (01:29)
[2018-03-04] MEDS ORDERED: Cefepime(*) 1 GM in D5W 50 ML BAG* 50 ML IVPB ONE (01:37)
[2018-03-04] MEDS ORDERED: Magnesium Sulfate IV* 3 GM in NS 0.9% 100 ML* 100 ML IVPB ONE (02:02)
[2018-03-04] MEDS ORDERED: Azithromycin TAB* 250 MG PO ONE (03:32)
[2018-03-04] MEDS ORDERED: Aspirin EC TAB* 81 MG TAB.EC PO PRN (03:34)
[2018-03-04] MEDS: Heparin VIAL(*) 5000 UNITS/ML VIAL (FIVE THOUSAND) SUBCUT SCH ×3 (05:02→21:47)
[2018-03-04 06:35] LABS: Hematocrit 40 % (42-52); Hemoglobin 13.5 g/dl (14.0-18.0); Mean Corpuscular HGB Conc 34 g/dl (31-36); Mean Corpuscular Hemoglobin 31 pg (27-31); Mean Corpuscular Volume 91 fL (80-94); Mean Platelet Volume 9.5 um3 (7.4-10.4); Platelet Count 194 10^3/ul (150-450); Red Blood Count 4.35 10^6/ul (4.0-5.4); Red Cell Distribution Width 14 % (10.5-15); White Blood Count 25.5 10^3/ul (3.5-10.8)
[2018-03-04 06:53] LABS: EGFR Non-African American 104.7 (>60)
--- NOTE | 2018-03-04 07:09 | HP ---
HISTORY AND PHYSICAL: DATE OF ADMISSION: 03/04/18 ADMITTING PROVIDER: Lyndon Harding MD. PRIMARY CARE PROVIDER: Deric Rai DO CHIEF COMPLAINT: syncope; sudden tiredness; chills, right thigh pain. HISTORY OF PRESENT ILLNESS: Eddy Black is a 77-year-old male with PMH of hypertension, CAD, hyperlipidemia, non-insulin dependent diabetes mellitus concern for posterior circulation CVA, who presents with syncope. Patient was recently seen in the emergency room on 02/16/18 with complaints at that time of shortness of breath, weakness, and cough for 1 to 2 months. He had slightly elevated D-dimer of 285. He had a CTA, which was a limited study, was not able to completely rule out pulmonary embolism but did show some evidence of atelectasis versus inflammatory infiltrate and patient was discharged from the ED with 10 days of Levaquin, 40 mg prednisone, and an inhaler. He had a white count of 14.1 at that time. He felt like he improved at home. On evening of , he did start to feel suddenly tired after sitting up from the couch while watching TV and chills around 9 p.m.,. He was assisted to bed by his , who upon returning to the bedroom about an hour later found the patient in the doorway on the ground. He says he blacked out, cannot recall much of the details around this event. He is complaining of some cough of whitish sputum. He denies any chest pain, chest pressure, headaches, neck stiffness. He does attest to sensation of swollen right thigh that is painful that seemed to worse 03/03 (day of syncope) but has first noticed it about few days ago. His workup in the emergency room on presentation was significant for leukocytosis of 23.9. He had a chest x- ray, which looks similar to prior with difficult to exclude a process at the left base. Patient was referred to hospitalist service for admission for syncope and suspected pneumonia. He was started on cefepime in the emergency room. T-max so far has been 100.0. He got 3 L normal saline bolus, and is currently satting mid 90s on room air. PAST MEDICAL HISTORY: Hyperlipidemia, hypertension, non-insulin dependent diabetes mellitus though recently was told to stop taking his metformin by Dr. Rai. Dr. Clark was concerned about a potential posterior circulation CVA. We do not have access to imaging records in [facility] that document that. MEDICATIONS: Include: 1. Atorvastatin 20 mg daily. 2. Aspirin 81 mg daily. 3. Metoprolol 50 mg p.o. b.i.d. 4. Lisinopril 40 mg daily. 5. Ventolin one to two puff inhale q.4 hours p.r.n. ALLERGIES: Include PENICILLIN, which produces rash. FAMILY HISTORY: Mother of liver failure/hepatitis C at age 68. Father of myocardial infarction at age 90. SOCIAL HISTORY: Patient is a never smoker, never drinker, retired from job working with troubled youth. His medical surrogate is his , Ericka Black. He wishes to be a full code. REVIEW OF SYSTEMS: A complete 14-point review of systems negative except as per HPI. Denies any focal weakness. Does complain of chills, slightly productive cough, slight shortness of breath, not infrequent falls. Sensation of right thigh swelling and pain. PHYSICAL EXAMINATION GENERAL APPEARANCE: No acute distress but tired appearing. VITAL SIGNS: T-max 100.0, heart rate 84 to 91, respiratory rate 14 to 17, satting 94-96% on room air, blood pressure 124/66. HEENT: Normocephalic, atraumatic. Pupils are equal, round and reactive to light. Extraocular motions intact. No scleral icterus. NECK: Supple. PULMONARY: Rhonchi in the middle and lower right lung coleman. No rales or wheezing appreciated. CARDIOVASCULAR: Regular rate and rhythm. No murmurs, rubs or gallops. ABDOMEN: Soft, nontender, nondistended. EXTREMITIES: Warm and well perfused. 1+ edema in the right, trace on the left. NEUROLOGIC: [employer] strength 5/5. Left hip flexion 5/5, right hip flexion somewhat limited by pain in the thigh but is antigravity. Dorsiflexion and plantarflexion 5/5. Cranial nerves II through XII intact. SKIN: No lesions, no rashes. DIAGNOSTIC STUDIES/LAB DATA: White count 23.9, hemoglobin 13.9, hematocrit 42 , platelets 200, neutrophils percentage is 92.5. INR 1.14. Sodium 134, potassium 3.9, chloride 105, carbon dioxide 23, BUN 12, creatinine 0.72, glucose 172, lactic acid 1.3. Magnesium 1.5, total bili 0.7, AST 25, ALT 31, alk phos 81. Troponin 0.01. CRP 9.3. Total protein 5.9. Albumin 3.3, TSH 0.45, procalcitonin added on 0.1. Urinalysis 1+ blood, 1+ rbc's, 2+ glucose. Influenza swabs A and B were negative. IMAGING: CT head noncontrast: imaging on-call radiological report reviewed and no acute process. Official Report documents diffuse involational change with disproportionate ventriculomegaly, stable from previous. Chest x-ray, no clear infiltrates per my read though difficult to make out left costophrenic angle. EKG normal sinus rhythm, normal axis, poor R-wave progression, flat or inverted T waves in V4 and V5, V6, 3. ASSESSMENT AND PLAN: Eddy Black is a 77-year-old male with past medical history of hypertension, recent pneumonia, status post 10 days Levaquin with prednisone, also suspicious for posterior circulation CVA with Dr. Clark's outpatient workup, who presenting with syncope, chills, leukocytosis. Patient is also complaining of right thigh pain and I am going to add on duplex Doppler of his right lower extremity to rule out DVT. I am going to recheck a troponin with the 6 a.m. labs (initial was negative). He is not complaining of any chest pain. His last echocardiogram was in September 2016 with ejection fraction of 50-55%. I am going to repeat echocardiogram in the morning. Given his recent pneumonia and leukocytosis, we will continue his antibiotics empirically. I will get a strep pneumonia, urine antigen and Legionella urine antigen; sputum culture, follow up the blood cultures. He does have a penicillin allergy, he seems to be tolerating the cefepime that he has got in the ED so far. I am going to switch to ceftriaxone and azithromycin. However, noted his procalcitonin is only 0.1. His ventricle seemed enlarged to me and note has been made in the past, some concern that he could have normal pressure hydrocephalus that may be causing some gait instability and/or fatigue/altered mental status. His magnesium level is going to be repeated, replete to above 2. We will get CBC daily. We will try to find outpatient records from Dr. Clark about his posterior CVA workup. He does not have any focal neurological deficits at this time. I am going to add on a D-dimer. Given limitations of prior CTA and now syncope with blackout event, may need to get another CTA or V/Q scan, although latter might be limited in the setting of recent atelectasis versus inflammatory infiltrate on previous CTA. I am going to continue his aspirin 81 mg daily, his atorvastatin and metoprolol 50 mg p.o. b.i.d. Hold his lisinopril 40 mg daily for now, but titrate back as able. Blood pressure is currently well controlled in the 120s/60s. He is a full code. Medical surrogate is Ericka Black. Eat a heart healthy diet. We will be putting him on heparin for DVT prophylaxis. [id number]/[facility] #: [id number] MTDD
[2018-03-04 07:11] LABS: ABS Basophils 0.1 10^3/ul (0-0.2); ABS Eosinophils 0 10^3/ul (0-0.6); ABS Lymphocytes 1.2 10^3/ul (1.0-4.8); ABS Monocytes 1.4 10^3/ul (0-0.8); ABS Neutrophils 22.7 10^3/ul (1.5-7.7); ABS Nucleated RBC 0 10^3/ul; Eosinophil % 0 % (0-6); Lymphocyte % 4.7 % (25-47); Nucleated Red Blood Cells % 0
[2018-03-04] MEDS ORDERED: Ibuprofen TAB* 600 MG PO PRN (07:47)
--- NOTE | 2018-03-04 07:57 | RAD ---
INDICATION: Syncope and fatigue. COMPARISON: Comparison is made with a prior study from February 16, 2018. Correlation is also made with a prior study from September 11, 2017. TECHNIQUE: A portable view of the chest was obtained. FINDINGS: The heart appears mildly enlarged and unchanged from the prior exam. There is elevation of the left hemidiaphragm which is unchanged. The lungs are clear. No pleural effusion is seen. IMPRESSION: 1. NO EVIDENCE FOR ACUTE DISEASE. 2. ELEVATION OF THE LEFT HEMIDIAPHRAGM, UNCHANGED.
[2018-03-04] MEDS ORDERED: Ibuprofen TAB* 400 MG ONE (07:58)
[2018-03-04] MEDS: Atorvastatin* 20 MG TAB PO SCH (07:59)
--- NOTE | 2018-03-04 07:59 | RAD ---
HISTORY: Syncope COMPARISONS: September 11, 2017, October 08, 2016, MRI dated November 28, 2016 TECHNIQUE: Multiple contiguous axial CT scans were obtained of the head without intravenous contrast. FINDINGS: HEMORRHAGE/INFARCT: There is no hemorrhage or acute infarct. MASSES/SHIFT: There is no mass or shift. EXTRA-AXIAL SPACES: There are no extra-axial fluid collections. SULCI AND VENTRICLES: Again noted is diffuse enlargement of the sulci and ventricles, with somewhat disproportionate ventriculomegaly. This is stable compared to the previous examination. CEREBRUM: There is mild hypoattenuation of the periventricular and subcortical white matter. There is a punctate focus of calcification within the left basal ganglia on axial image 13. This can be identified in retrospect on the previous examination and is stable BRAINSTEM: There are no focal parenchymal abnormalities. CEREBELLUM: There are no focal parenchymal abnormalities. VESSELS: The vessels are grossly normal. PARANASAL SINUSES: The paranasal sinuses are clear. ORBITS: The orbits are unremarkable. BONES AND SOFT TISSUE: No bone or soft tissue abnormalities are noted. OTHER: None IMPRESSION: 1. NO ACUTE INTRACRANIAL PATHOLOGY. 2. DIFFUSE INVOLUTIONAL CHANGE WITH DISPROPORTIONATE VENTRICULOMEGALY, STABLE FROM THE PREVIOUS EXAMINATION
[2018-03-04] MEDS ORDERED: Ibuprofen TAB* 400 MG PO PRN (08:20)
[2018-03-04] MEDS ORDERED: Metoprolol Tartrate TAB* 50 mg PO SCH (09:00)
[2018-03-04] MEDS: cefTRIAXone(*) 1 GM in NS 0.9% 50 ML* 50 ML IVPB SCH (09:44)
--- NOTE | 2018-03-04 09:52 | RAD ---
INDICATION: Right knee injury. TECHNIQUE: 2 views of the right knee were obtained. FINDINGS: The bones are normal alignment. No joint effusion or fracture is seen. Joint spaces appear maintained. IMPRESSION: NO EVIDENCE FOR FRACTURE.
--- NOTE | 2018-03-04 09:59 | RAD ---
Indication: Right hip pain. AP view of the hip and 2 views of the right hip demonstrates no fracture. No other bone or joint abnormality is identified. IMPRESSION: No fracture of the right hip is noted. Degenerative changes of the right hip is noted.
--- NOTE | 2018-03-04 10:03 | RAD ---
HISTORY: Asymmetric swelling and pain COMPARISONS: None relevant TECHNIQUE: Multiple transverse and longitudinal ultrasound images were obtained of the right lower extremity from the level of the common femoral vein inferiorly through to the infrapopliteal veins using grayscale, color Doppler, and spectral Doppler imaging with and without compression and with augmentation. Comparison images were obtained of the contralateral common femoral vein. FINDINGS: VEINS: The venous system of the right lower extremity is compressible throughout its course, with normal flow on color Doppler imaging and normal response to augmentation on spectral Doppler imaging. SOFT TISSUES: Unremarkable. OTHER FINDINGS: None. IMPRESSION: NO RIGHT LOWER EXTREMITY DEEP VEIN THROMBOSIS
--- NOTE | 2018-03-04 14:40 | PN ---
Subjective Date of Service: 03/04/18 Interval History: Feels well. Some soreness L upper gums posterior to his last tooth on that side. Objective Active Medications: Aspirin (Aspirin Ec Tab*) 81 mg PO DAILY PRN PRN Reason: PAIN Atorvastatin Calcium (Lipitor*) 20 mg PO DAILY [facility] Last Admin: 03/04/18 07:59 Dose: 20 mg Azithromycin (Zithromax Tab*) 250 mg PO DAILY [facility] Heparin Sodium (Porcine) (Heparin Vial(*)) 5,000 units SUBCUT Q8HR [facility] Last Admin: 03/04/18 13:25 Dose: 5,000 units Ceftriaxone Sodium 1 gm/ (Sodium Chloride) 50 mls @ 200 mls/hr IVPB Q24H [facility] Last Admin: 03/04/18 09:44 Dose: 200 mls/hr Ibuprofen (Motrin Tab*) 400 mg PO Q6H PRN PRN Reason: PAIN Metoprolol Tartrate (Lopressor Tab*) 50 mg PO BID [facility] Last Admin: 03/04/18 07:59 Dose: 50 mg Vital Signs - 8 hr 03/04/18 03/04/18 03/04/18 07:33 11:38 11:40 Temperature 97.8 F 98.0 F Pulse Rate 78 55 57 Respiratory 18 16 17 Rate Blood Pressure 135/57 117/56 127/60 (mmHg) O2 Sat by Pulse 99 98 98 Oximetry 03/04/18 11:48 Temperature Pulse Rate 58 Respiratory Rate Blood Pressure 127/57 (mmHg) O2 Sat by Pulse Oximetry Oxygen Devices in Use Now: None Appearance: Alert, sitting up in bed. In good spirits. Looks comfortable. Eyes: No Scleral Icterus Ears/Nose/Mouth/Throat: Clear Oropharnyx, Mucous Membranes Moist, - - many teeth missing. His gums where he points to do not look inflamed. Respiratory: Symmetrical Chest Expansion and Respiratory Effort, Clear to Auscultation, Clear to Percussion Cardiovascular: NL Sounds; No Murmurs; No JVD, RRR, No Edema, - Extremities: No Edema, No Clubbing, Cyanosis, - Skin: No Rash or Ulcers, No Nodules or Sclerosis, - Neurological: Alert and Oriented x 3, NL Sensation, - - Slow gait. Diminished memory. Result Diagrams: 03/04/18 06:24 03/04/18 06:24 Assess/Plan/Problems-Billing Assessment: - Patient Problems (1) Syncope Current Visit: No Status: Acute Code(s): R55 - SYNCOPE AND COLLAPSE SNOMED Code(s): 269505381 Comment: Prior episode 10/06. No clear cause identified either time. Consider loop recorder. (2) Leukocytosis Current Visit: Yes Status: Acute Code(s): D72.829 - ELEVATED WHITE BLOOD CELL COUNT, UNSPECIFIED SNOMED Code(s): 106014542 Comment: At least 10 days since he took prednisone. He may be an outlier in WBC response to steroids. Note low procalcitonin. One elevated temp of 100.0 ? factitious. Continue ceftrizxone and azithromycin. (3) Diabetes Current Visit: No Status: Acute Code(s): E11.9 - TYPE 2 DIABETES MELLITUS WITHOUT COMPLICATIONS SNOMED Code(s): 96028022 Comment: Needs outpt fup. (4) HTN (hypertension) Current Visit: Yes Status: Acute Code(s): I10 - ESSENTIAL (PRIMARY) HYPERTENSION SNOMED Code(s): 56020905 Comment: Lisinopril on hold. Reduce metoprolol tartrate to 25 mg bid 03/04 PM.
--- NOTE | 2018-03-04 17:14 | ECHO ---
Patient: SHALINI REID [facility] Rec#: [id number] : 1940 Date: 03/04/2018 Age: 77y Height: 177.8 cm / 70.0 in Weight: 97.98 kg / 215.9 lbs Sex: M BSA: 2.16 Room#: 418 Admit Date#: 03/04/2018 Type: Inpatient Referring: Lyndon Harding Reading: Derick Schultz MD Quality Improvement Manager: Cheri Gil RDCS CC: Deric Rai MD Transthoracic Echocardiogram Indication: Syncope BP: 132/61 HR: 50 Rhythm: NSR Findings History: HTN, HLD, CAD, DM. Technical Comments: The study quality is poor. The study is technically limited due to poor acoustic windows. Completd at 1630. Left Ventricle: The left ventricular chamber size is normal. Mild to moderate concentric left ventricular hypertrophy is observed. Global left ventricular wall motion and contractility are within normal limits. There is normal left ventricular systolic function. The estimated ejection fraction is 55-60%. Normal left ventricular diastolic filling is observed. Left Atrium: The left atrium is mildly dilated. Right Ventricle: Moderator Band present. The right ventricle is mildly dilated. The right ventricular global systolic function is normal. Right Atrium: The right atrium is mild to moderately dilated. Aortic Valve: The aortic valve is trileaflet. The aortic valve leaflets are mildly thickened. There is a trace of aortic regurgitation. There is no evidence of aortic stenosis. Mitral Valve: The mitral valve leaflets are mildly thickened. There is trace to mild mitral regurgitation. There is no evidence of mitral stenosis. Tricuspid Valve: The tricuspid valve leaflets are normal. There is mild to moderate tricuspid regurgitation. The right ventricular systolic pressure is estimated at 46 mmHg. There is evidence of moderate pulmonary hypertension. There is no tricuspid stenosis. Pulmonic Valve: The pulmonic valve structure is not well visualized. There is a trace pulmonic regurgitation. There is no pulmonic stenosis. Pericardium: There is no significant pericardial effusion. A pericardial fat pad is visualized. Aorta: There is no dilatation of the ascending aorta. There is no dilatation of the aortic arch. The aortic root is normal in size. Pulmonary Artery: The main pulmonary artery is not well visualized. Venous: The venous system is not well visualized. The inferior vena cava is dilated. There is a greater than 50% respiratory change in the inferior vena cava dimension. Summary: There are no significant changes when compared to the previous study done on 10/09/16 Conclusions Global left ventricular wall motion and contractility are within normal limits. There is normal left ventricular systolic function. The estimated ejection fraction is 55-60%. There is a trace of aortic regurgitation. There is trace to mild mitral regurgitation. There is mild to moderate tricuspid regurgitation. There is evidence of moderate pulmonary hypertension. There is no significant pericardial effusion. There are no significant changes when compared to the previous study done on 10/09/16 Measurements Name Value Normal Range RVIDd (AP) 2D 2.7 cm (0.9 - 2.6) RVDdMajor (2D) 4.5 cm (2.2 - 4.4) RAd ISD 4CH 5.4 cm (3.4 - 4.9) RA (A4C)W 5 cm (2.9 - 4.6) IVSd (2D) 1.3 cm (0.6 - 1) LVPWd (2D) 1.3 cm (0.6 - 1) LVIDd (2D) 4.4 cm (3.6 - 5.4) LVIDs (2D) 2.2 cm - LV FS (2D) 49 % (25 - 45) Aortic Annulus 2.1 cm (1.4 - 2.6) Ao root diameter (2D) 3.2 cm (2.1 - 3.5) Ascending Ao 3.1 cm (2.1 - 3.4) Aortic arch 3 cm (1.8 - 3.4) LA dimension (AP) 2D 4.3 cm (2.3 - 3.8) LAd ISD 4CH 5.5 cm (2.9 - 5.3) LA ISD 4CH W 4.4 cm (2.5 - 4.5) Name Value Normal Range LA ESV SP 4CH (A/L) 83 ml - LA ESV SP 2CH (A/L) 83 ml - LA ESV BP (A/L) 84 ml - LA ESV BP (A/L) index 39 ml/m2 - LA ESV SP 4CH (MOD) 75 ml - LA ESV SP 2CH (MOD) 79 ml - Name Value Normal Range MV E-wave Vmax 0.76 m/sec - MV deceleration time 241.5 msec - MV A-wave Vmax 0.5 m/sec - MV E:A ratio 1.51 ratio - LV septal e' Vmax 0.07 m/sec - LV lateral e' Vmax 0.09 m/sec - LV E:e' septal ratio 10.86 ratio - LV E:e' lateral ratio 8.44 ratio - Name Value Normal Range AV Vmax 1.04 m/sec - AV VTI 30.4 cm - AV peak gradient 4.38 mmHg - AV mean gradient 3.45 mmHg - LVOT Vmax 0.98 m/sec - LVOT VTI 25.1 cm - LVOT peak gradient 3.85 mmHg - LVOT mean gradient 2.2 mmHg - GRACE Vmax 0.88 m/sec - Name Value Normal Range TR Vmax 3.1 m/sec - TR peak gradient 38 mmHg - RAP 8 mmHg - RVSP 46 mmHg - IVC diameter 2.2 cm - Name Value Normal Range PV Vmax 0.88 m/sec - PV peak gradient 3.11 mmHg -
[2018-03-04] MEDS: Metoprolol Tartrate TAB* 25 MG PO SCH (21:47)
[2018-03-05] MEDS: Heparin VIAL(*) 5000 UNITS/ML VIAL (FIVE THOUSAND) SUBCUT SCH (05:11)
[2018-03-05 05:53] LABS: ABS Basophils 0.1 10^3/ul (0-0.2); ABS Eosinophils 0.1 10^3/ul (0-0.6); ABS Lymphocytes 1.5 10^3/ul (1.0-4.8); ABS Monocytes 0.9 10^3/ul (0-0.8); ABS Neutrophils 10.4 10^3/ul (1.5-7.7); ABS Nucleated RBC 0 10^3/ul; Eosinophil % 0.9 % (0-6); Hematocrit 40 % (42-52); Hemoglobin 13.5 g/dl (14.0-18.0); Lymphocyte % 11.7 % (25-47); Mean Corpuscular HGB Conc 34 g/dl (31-36); Mean Corpuscular Hemoglobin 31 pg (27-31); Mean Corpuscular Volume 91 fL (80-94); Mean Platelet Volume 9.6 um3 (7.4-10.4); Nucleated Red Blood Cells % 0; Platelet Count 198 10^3/ul (150-450); Red Blood Count 4.44 10^6/ul (4.0-5.4); Red Cell Distribution Width 15 % (10.5-15); White Blood Count 12.9 10^3/ul (3.5-10.8)
[2018-03-05 06:10] LABS: EGFR Non-African American 108.2 (>60)
[2018-03-05 08:28] VITALS: BP 143/64
[2018-03-05] MEDS: Atorvastatin* 20 MG TAB PO SCH (08:29)
[2018-03-05] MEDS: Metoprolol Tartrate TAB* 25 MG PO SCH (08:29)
[2018-03-05] MEDS ORDERED: Azithromycin TAB* 250 MG PO SCH (09:00)
[2018-03-05] MEDS: cefTRIAXone(*) 1 GM in NS 0.9% 50 ML* 50 ML IVPB SCH (10:19)
--- NOTE | 2018-03-05 12:46 | DS ---
CC: Dr. Rai DATE OF ADMISSION: 03/04/2018. DATE OF DISCHARGE: 03/05/2018. HISTORY OF PRESENT ILLNESS: This 77-year-old man was admitted after a syncopal episode. This occurr ed in the middle of the night. There was really no warning. His found him. He was out for some time. He felt weak for two hours after he woke up, but then returned back to normal. He was admitt ed here about a year-and-a- half ago with a very similar presentation. The patient recalled that and feels it was pretty much the same type of event. In between he has been feeling well. The rest of the history is detailed in the admission note. HOSPITAL COURSE: He was admitted and monitored. His C-reactive protein was 9.33. He had two troponi n levels, both of which were within normal limits. He had no significant arrhythmias. His white cou nt was 23.9, on the day of discharge it was 12.9. He had one temperature of 100.0, all the other tem peratures subsequent to that were below 99. His initial temperature was 99.8. The patient felt well. He was treated with Ceftriaxone and Azithromycin. His chest x-ray showed ruddy vated left hemidiaphragm, but no infiltrate. He had x-rays of his knee, hip, and pelvis. He also wheeler d a transthoracic echocardiogram. The extremity x-rays were unremarkable. Echocardiogram showed an ejection fraction of 55 to 60 percent. There was no significant pericardial effusion. There was no significant valvular abnormalities. It is not all clear that the patient had an infection. I am going to complete a five day course of A zithromycin with three more days as an outpatient. He will have an appointment on March 19 for carson martinez of a loop recorder. His Lisinopril is being held. FINAL DIAGNOSES: 1. Syncope. 2. Leukocytosis with low grade fever. 3. Diabetes. 4. Hypertension. DISCHARGE MEDICATIONS: 1. Azithromycin 250 mg daily for 3 days. 2. Atorvastatin 20 mg daily. 3. Aspirin 81 mg daily. 4. Metoprolol 50 mg b.i.d. 5. Albuterol inhaler one to two puffs every 4 hours prn. Lisinopril has been discontinued. [id number]/[facility] #: [id number]
== END 2018-03-05 11:20 | disposition home or self-care (01) ==
LOC: ED 23:34 → MED 03-04 02:04
PROVIDERS: ADMIT Internal Medicine; ATTEND Internal Medicine
DX: R55 Syncope and collapse (principal); D72.829 Elevated white blood cell count, unspecified; E11.9 Type 2 diabetes mellitus without complications; I10 Essential (primary) hypertension; Z79.82 Long term (current) use of aspirin
CPT/HCPCS: 36415; 70450; 71045; 80048; 80053; 81003; 81015; 82550; 83036; 83605; 83735; 84145; 84443; 84484; 85025; 85379; 85610; 85730; 86140; 87040; 87502; 87899; 93005; 93306; 96365; 96366; 96375; 99285; A9270-GY; G0378; G8978-GP-CI; G8979-GP-CH; J0692; J0696; J1644; J3475

== ENCOUNTER → 2018-07-14 18:56 | Emergency (ER) | payer MEDICARE, BC ==
[~2018-07-14 18:56] MED LIST: Lidocaine 2% PF * 5 ML VIAL ONE; NS 0.9% 1000 ML*IV.FLUID IV ONE; cefTRIAXone VIAL(*) 1,000 MG VIAL IM ONE; cefTRIAXone VIAL(*) 1,000 MG VIAL ONE; cefTRIAXone(*) 1 GM in NS 0.9% 50 ML* 50 ML IVPB ONE
--- NOTE | 2018-07-14 19:33 | ED ---
Neurological HPI - HPI Summary HPI Summary: A 77 y/o M CHANO presents to ED with c/o weakness onset today [employer]EN[employer] DRAW[employer]. Pt was watching the football game at onset. He states having similar episodes of weakness and has visited the hospital previously for them. The only dx he knows of for those episodes are B12 deficiency. Associated sx: urinary incontinence, decreased appetite, mild LE numbness in feet, fever. Denies nausea/vomiting; dysuria; cough. - History of Current Complaint Chief Complaint: EDGeneral Stated Complaint: WEAKNESS, POSSIBLE SYNCOPE Hx Obtained From: Patient Onset/Duration: Started hours ago, Still Present Timing: Constant Pain Intensity: 0 Pain Scale Used: 0-10 Numeric Character: Weak Associated Signs and Symptoms: Positive: Weakness, Numbness - mild, in feet, Incontinent Bladder/Bowel, Decreased Oral Intake, Fever. Negative: Nausea/ Vomiting - Additional Pertinent History Primary Care Physician: SAGAR - Allergy/Home Medications Allergies/Adverse Reactions: Allergies Allergy/AdvReac Type Severity Reaction Status Date / Time Penicillins AdvReac Intermediate Rash Verified 03/04/18 01:47 Home Medications: Home Medications Ascorbic Acid [Vitamin C] 500 mg PO DAILY 07/14/18 [History Confirmed 07/14/18] Magnesium Oxide [Magnesium] 400 mg PO DAILY 07/14/18 [History Confirmed 07/14/18 ] Vitamin B-12 5,000 mcg SL BID 07/14/18 [History Confirmed 07/14/18] PMH/Surg Hx/FS Hx/Imm Hx Previously Healthy: No Endocrine/Hematology History: Reports: Hx Diabetes Cardiovascular History: Reports: Hx Congestive Heart Failure, Hx Coronary Artery Disease, Hx Hypercholesterolemia, Hx Hypertension, Other Cardiovascular Problems/Disorders - irregular heart beat, declined cardiac stents (this info is prepopulated) Respiratory History: Reports: Hx Pneumonia History: Reports: Hx Kidney Stones Sensory History: Reports: Hx Contacts or Glasses - at home, not with Pt Denies: Hx Hearing Aid Opthamlomology History: Reports: Hx Contacts or Glasses - at home, not with Pt Neurological History: Reports: Hx CVA - brainstem per pt , 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 - Surgical History Surgery Procedure, Year, and Place: None - Immunization History Date of Tetanus Vaccine: unk Date of Influenza Vaccine: utd Infectious Disease History: No Infectious Disease History: Denies: Traveled Outside the [place] in Last 30 Days - Family History Known Family History: Positive: Cardiac Disease - >55, Other - hypotension Negative: Hypertension, Diabetes - Social History Occupation: Retired Lives: With Family Alcohol Use: None Hx Substance Use: No Substance Use Type: Reports: None Hx Tobacco Use: No Smoking Status (MU): Never Smoked Tobacco Review of Systems Positive: Fever, Other - pos: decreased appetite Negative: Cough Negative: Vomiting, Nausea Positive: incontinence - urinary. Negative: dysuria Positive: Weakness, Numbness - mild, in feet All Other Systems Reviewed And Are Negative: Yes Physical Exam - Summary Physical Exam Summary: Appearance: Well-appearing, Well-nourished, lying in bed comfortably Skin: Warm, dry, no obvious rash Eyes: sclera anicteric, no conjunctival pallor ENT: mucous membranes moist, pharynx appears normal Neck: Supple, nontender Respiratory: Clear to auscultation, no signs of respiratory distress Cardiovascular: Normal S1, S2. No murmurs. Normal distal pulses in tibial and radial bilaterally. Abdomen: Soft, nontender, normal active bowel sounds present Musculoskeletal: Normal, Strength/ROM Intact. Mild pitting pedal edema bilaterally. Neurological: A&Ox3, awake and alert, mentation is normal, speech is fluent and appropriate Psychiatric: affect is normal, does not appear anxious or depressed Triage Information Reviewed: Yes Vital Signs On Initial Exam: Initial Vitals Temp Pulse Resp BP Pulse Ox 100.2 F 75 15 138/68 97 07/14/18 18:58 07/14/18 18:58 07/14/18 18:58 07/14/18 18:58 07/14/18 18:58 Vital Signs Reviewed: Yes Diagnostics - Vital Signs Vital Signs Temp Pulse Resp BP Pulse Ox 07/14/18 18:58 100.2 F 75 15 138/68 97 - Laboratory Result Diagrams: 07/14/18 19:50 07/14/18 19:50 Lab Statement: Any lab studies that have been ordered have been reviewed, and results considered in the medical decision making process. - Radiology CXR Xray Interpretation: Positive (See Comments) - Elevation of L hemidiaphragm, no inflitrates Radiology Interpretation Completed By: ED Physician Re-Evaluation - Re-Evaluation 1 Re-Evaluation Time: 22:42 Course/Dx - Course Course Of Treatment: A 77 y/o M BIBA presents with c/o weakness and episode of urinary incontinence today. Flu A/B are negative. UA showed trace ketones. Glucose: 163. Pt will be discharged home. Pt is hemodynamically stable and A& Ox3. - Diagnoses Provider Diagnoses: Weakness, Urinary incontinence, Leukocytosis Discharge - Sign-Out/Discharge Documenting (check all that apply): Patient Departure - DC - Discharge Plan Condition: Good Disposition: HOME Patient Education Materials: Fever in Adults (ED) Referrals: Deric Rai DO [Primary Care Provider] - Additional Instructions: I suspected you are coming down with some type of infection, but the exact nature of that infection is not clear at this time. I do not have any evidence that the infection is severe, and do not believe you need to be in the hospital at present. We did give you a single dose of a broad-spectrum antibiotic to cover you for infection while we wait for the cultures to come back from the lab and the next day or 2. If they do turn positive we will contact you. In the meantime, if you start feeling much worse you should come back to the hospital. - Billing Disposition and Condition Condition: GOOD Disposition: Home - Attestation Statements Document Initiated by Karenibe: Yes Documenting Scribe: April Martinez Provider For Whom Jasbir is Documenting (Include Credential): Dr. Santana Green MD Scribe Attestation: I, April Martinez, scribed for Dr. Santana Green MD on 07/15/18 at 0631. Scribe Documentation Reviewed: Yes Provider Attestation: The documentation as recorded by the April lewis accurately reflects the service I personally performed and the decisions made by me, Dr. Santana Green MD
[2018-07-14 20:00] LABS: ABS Basophils 0 10^3/ul (0-0.2); ABS Eosinophils 0 10^3/ul (0-0.6); ABS Lymphocytes 0.9 10^3/ul (1.0-4.8); ABS Monocytes 1.3 10^3/ul (0-0.8); ABS Neutrophils 15.8 10^3/ul (1.5-7.7); ABS Nucleated RBC 0 10^3/ul; Eosinophil % 0 % (0-6); Hematocrit 47 % (42-52); Hemoglobin 15.9 g/dl (14.0-18.0); Lymphocyte % 5.2 % (25-47); Mean Corpuscular HGB Conc 34 g/dl (31-36); Mean Corpuscular Hemoglobin 32 pg (27-31); Mean Corpuscular Volume 94 fL (80-94); Nucleated Red Blood Cells % 0; Platelet Count 174 10^3/ul (150-450); Red Blood Count 5.02 10^6/ul (4.00-5.40); Red Cell Distribution Width 14 % (10.5-15); White Blood Count 18.1 10^3/ul (3.5-10.8)
[2018-07-14 20:08] LABS: INR 1.1 (0.77-1.02)
[2018-07-14 20:17] LABS: EGFR Non-African American 86.7 (>60)
[2018-07-14 21:05] LABS: Urine Appearance Clear; Urine Blood Negative (Negative); Urine Color Yellow; Urine Ketones Trace (Negative); Urine Protein Negative (Negative); Urine Specific Gravity 1.018 (1.010-1.030); Urine Urobilinogen Negative (Negative)
[2018-07-15 01:12] VITALS: BP 160/60
--- NOTE | 2018-07-15 08:02 | RAD ---
INDICATION: Fever and weakness COMPARISON: Most recent comparison chest x-rays dated March 04, 2018 TECHNIQUE: PA and lateral views of the chest were obtained. FINDINGS: Similar to the prior chest x-ray there is a mild degree of cardiomegaly. Overlying the mid-level left lung there is a linear density at the expected location of the fissure. There is elevation of the left hemidiaphragm stable compared to the previous chest x-ray. The lungs are otherwise adequately aerated. Visualized bones are normal for the patient's age. There is no radiographic evidence of free air beneath the diaphragm IMPRESSION: CHRONIC FINDINGS INCLUDE MILD CARDIOMEGALY, FLUID IN THE LEFT FISSURE AND ELEVATION OF THE LEFT HEMIDIAPHRAGM. THERE ARE NO RADIOGRAPHICALLY APPARENT ACUTE CARDIOPULMONARY ABNORMALITIES. R0
== END | disposition home or self-care (01) ==
LOC: ED 18:56
DX: R53.1 Weakness (principal); R32 Unspecified urinary incontinence; D72.829 Elevated white blood cell count, unspecified; R50.9 Fever, unspecified; E11.9 Type 2 diabetes mellitus without complications; I25.10 Atherosclerotic heart disease of native coronary artery without angina pectoris
CPT/HCPCS: 36415; 71046; 80053; 81003; 83605; 84484; 85025; 85610; 85730; 87040; 96365; 96375; 99283; J0696

== ENCOUNTER 2022-07-11 16:40 | Inpatient (IN) ==
[2022-07-11 18:11] LABS: ABS Basophils 0.1 10^3/ul (0-0.2); ABS Eosinophils 0.3 10^3/ul (0-0.6); ABS Lymphocytes 1.1 10^3/ul (1.0-4.8); ABS Neutrophils 6.6 10^3/ul (1.5-7.7); Eosinophil % 2.9 %; Hematocrit 38 % (42-52); Hemoglobin 12.4 g/dL (14.0-18.0); Lymphocyte % 11.7 %; Mean Corpuscular HGB Conc 33 g/dL (31-36); Mean Corpuscular Hemoglobin 29 pg (27-31); Mean Corpuscular Volume 89 fL (80-94); Nucleated Red Blood Cells % 0.1; Platelet Count 224 10^3/uL (150-450); Red Blood Count 4.24 10^6 /uL (4.18-5.48); Red Cell Distribution Width 16 % (10-15)
[2022-07-11 19:04] LABS: TSH Ultra Thyroid Stim Horm 1.72 mcIU/mL (0.34-5.60)
[2022-07-11 19:05] LABS: ALT 26 U/L (7-52); AST 20 U/L (13-39); Acetaminophen < 15 mcg/mL; Albumin 2.4 g/dL (3.2-5.2); Alcohol, S < 13 mg/dL (<13); Alkaline Phosphatase 141 U/L (35-149); Anion Gap 6 mmol/L (2-11); Blood Urea Nitrogen 11 mg/dL (6-24); CO2 Carbon Dioxide 31 mmol/L (22-32); Calcium 8.3 mg/dL (8.6-10.3); Chloride 96 mmol/L (101-111); Globulin 2.4 g/dL (2-4); Glucose 114 mg/dL (70-100); Potassium 4.1 mmol/L (3.5-5.0); Salicylate < 2.50 mg/dL (<30); Sodium 133 mmol/L (135-145); Total Protein 4.8 g/dL (6.4-8.9)
[2022-07-11 19:15] LABS: Vitamin B12 > 1450 pg/mL (180-914)
[2022-07-11 23:34] LABS: Urine Appearance Clear; Urine Bilirubin Negative (Negative); Urine Color Yellow; Urine Glucose Negative (Negative); Urine Ketones 2+ (40mg/dL) (Negative); Urine Nitrite Positive (Negative); Urine Protein Negative (Negative)
[2022-07-11 23:36] LABS: Urine Bacteria Absent (Absent); Urine Red Blood Cell 3+(>10/hpf) (Absent); Urine White Blood Cell 2+(11-20/hpf) (Absent)
[2022-07-11 23:41] LABS: Urine Benzodiazepine Screen None Detected (None Detect); Urine Cannabinoids Screen None Detected (None Detect); Urine Opiates Screen None Detected (None Detect)
[2022-07-11] MEDS ORDERED: cefTRIAXone 1 gm/50 mL D5W 1 GM/50 ML BAG IV ONE (23:56)
[2022-07-12] MEDS ORDERED: cefTRIAXone 1 gm/50 mL D5W 1 GM/50 ML BAG IV SCH
[2022-07-12] MEDS: Enoxaparin 40 MG/0.4 ML SYR SUBCUT SCH (06:13)
[2022-07-12] MEDS ORDERED: Magnesium Sulfate 2 gm BAG 2 GM/50 ML BAG IVPB ONE (08:40)
[2022-07-12] MEDS: Nystatin TOP POWDER 15 GM BTL TOPICAL SCH ×3 (09:02→21:23)
[2022-07-12] MEDS: Aspirin EC 81 mg TAB.EC (enteric coated) PO SCH (09:02)
[2022-07-13] MEDS: cefTRIAXone 1 gm/50 mL D5W 1 GM/50 ML BAG IV SCH (00:38)
[2022-07-13 05:52] LABS: ABS Basophils 0.1 10^3/ul (0-0.2); ABS Eosinophils 0.2 10^3/ul (0-0.6); ABS Monocytes 1.1 10^3/ul (0-0.8); Eosinophil % 1.8 %; Hematocrit 40 % (42-52); Hemoglobin 13.1 g/dL (14.0-18.0); Lymphocyte % 9.7 %; Mean Corpuscular HGB Conc 33 g/dL (31-36); Mean Corpuscular Hemoglobin 30 pg (27-31); Mean Corpuscular Volume 90 fL (80-94); Mean Platelet Volume 9.1 fL (7.4-10.4); Platelet Count 249 10^3/uL (150-450); Red Blood Count 4.44 10^6 /uL (4.18-5.48); Red Cell Distribution Width 16 % (10-15); White Blood Count 10.4 10^3/uL (3.5-10.8)
[2022-07-13] MEDS: Enoxaparin 40 MG/0.4 ML SYR SUBCUT SCH (06:04)
[2022-07-13 06:11] LABS: Calcium 8.1 mg/dL (8.6-10.3); Potassium 4.2 mmol/L (3.5-5.0); eGFR CKD-EPI 101.4 (>60)
[2022-07-13 06:20] LABS: TSH Ultra Thyroid Stim Horm 1.92 mcIU/mL (0.34-5.60)
[2022-07-13] MEDS: Nystatin TOP POWDER 15 GM BTL TOPICAL SCH ×3 (09:54→21:15)
[2022-07-13] MEDS: Aspirin EC 81 mg TAB.EC (enteric coated) PO SCH (09:54)
[2022-07-14] MEDS: cefTRIAXone 1 gm/50 mL D5W 1 GM/50 ML BAG IV SCH (00:02)
[2022-07-14] MEDS: Enoxaparin 40 MG/0.4 ML SYR SUBCUT SCH (05:34)
[2022-07-14 06:08] LABS: ABS Basophils 0.1 10^3/ul (0-0.2); ABS Eosinophils 0.2 10^3/ul (0-0.6); ABS Lymphocytes 1.1 10^3/ul (1.0-4.8); ABS Monocytes 1.1 10^3/ul (0-0.8); ABS Neutrophils 7.5 10^3/ul (1.5-7.7); Eosinophil % 1.7 %; Hematocrit 38 % (42-52); Hemoglobin 12.8 g/dL (14.0-18.0); Lymphocyte % 11.2 %; Mean Corpuscular HGB Conc 34 g/dL (31-36); Mean Corpuscular Hemoglobin 30 pg (27-31); Mean Corpuscular Volume 89 fL (80-94); Mean Platelet Volume 9.1 fL (7.4-10.4); Platelet Count 235 10^3/uL (150-450); Red Blood Count 4.28 10^6 /uL (4.18-5.48); Red Cell Distribution Width 16 % (10-15)
[2022-07-14 06:24] LABS: Calcium 8.1 mg/dL (8.6-10.3); Magnesium 1.7 mg/dL (1.9-2.7); Potassium 4.2 mmol/L (3.5-5.0); eGFR CKD-EPI 97.2 (>60)
[2022-07-14] MEDS ORDERED: Magnesium Sulfate 2 gm BAG 2 GM/50 ML BAG IVPB ONE (09:00)
[2022-07-14] MEDS: Aspirin EC 81 mg TAB.EC (enteric coated) PO SCH (10:05)
[2022-07-14] MEDS: Nystatin TOP POWDER 15 GM BTL TOPICAL SCH ×3 (10:06→20:40)
[2022-07-14 19:17] LABS: Body Fluid Source Cerebral Spinal
[2022-07-14 19:29] LABS: Body Fluid Appearance Clear; Body Fluid Color Colorless; CSF Tube # 3
[2022-07-14 19:37] LABS: CSF Glucose 70 mg/dL (40-70)
[2022-07-14 19:47] LABS: Body Fluid WBC 0 /mcL
[2022-07-14 22:29] LABS: Body Fluid Total Cells Counted 0
[2022-07-15] MEDS: cefTRIAXone 1 gm/50 mL D5W 1 GM/50 ML BAG IV SCH (00:30)
[2022-07-15] MEDS: Enoxaparin 40 MG/0.4 ML SYR SUBCUT SCH (05:28)
[2022-07-15 06:05] LABS: ABS Basophils 0.1 10^3/ul (0-0.2); ABS Eosinophils 0.2 10^3/ul (0-0.6); ABS Monocytes 1.2 10^3/ul (0-0.8); ABS Neutrophils 6.7 10^3/ul (1.5-7.7); Eosinophil % 1.7 %; Hematocrit 39 % (42-52); Hemoglobin 12.8 g/dL (14.0-18.0); Lymphocyte % 11.3 %; Mean Corpuscular HGB Conc 33 g/dL (31-36); Mean Corpuscular Hemoglobin 30 pg (27-31); Mean Corpuscular Volume 89 fL (80-94); Platelet Count 238 10^3/uL (150-450); Red Blood Count 4.33 10^6 /uL (4.18-5.48); Red Cell Distribution Width 17 % (10-15); White Blood Count 9.1 10^3/uL (3.5-10.8)
[2022-07-15 06:24] LABS: Calcium 8.1 mg/dL (8.6-10.3); Potassium 4.4 mmol/L (3.5-5.0); eGFR CKD-EPI 98.7 (>60)
[2022-07-15] MEDS: Aspirin EC 81 mg TAB.EC (enteric coated) PO SCH (10:12)
[2022-07-15] MEDS: Nystatin TOP POWDER 15 GM BTL TOPICAL SCH ×3 (10:13→20:03)
[2022-07-16] MEDS: Enoxaparin 40 MG/0.4 ML SYR SUBCUT SCH (06:00)
[2022-07-16 07:46] LABS: Potassium 3.7 mmol/L (3.5-5.0); eGFR CKD-EPI 101.9 (>60)
[2022-07-16] MEDS: Aspirin EC 81 mg TAB.EC (enteric coated) PO SCH (09:13)
[2022-07-16] MEDS: Nystatin TOP POWDER 15 GM BTL TOPICAL SCH ×3 (09:15→21:03)
[2022-07-17] MEDS: Enoxaparin 40 MG/0.4 ML SYR SUBCUT SCH (05:52)
[2022-07-17 08:40] LABS: ABS Basophils 0.1 10^3/ul (0-0.2); ABS Eosinophils 0.2 10^3/ul (0-0.6); ABS Lymphocytes 1.2 10^3/ul (1.0-4.8); ABS Monocytes 1.1 10^3/ul (0-0.8); ABS Neutrophils 7.6 10^3/ul (1.5-7.7); Eosinophil % 1.8 %; Hematocrit 37 % (42-52); Hemoglobin 12.5 g/dL (14.0-18.0); Lymphocyte % 11.8 %; Mean Corpuscular HGB Conc 34 g/dL (31-36); Mean Corpuscular Hemoglobin 30 pg (27-31); Mean Corpuscular Volume 88 fL (80-94); Mean Platelet Volume 8.8 fL (7.4-10.4); Platelet Count 223 10^3/uL (150-450); Red Blood Count 4.22 10^6 /uL (4.18-5.48); Red Cell Distribution Width 16 % (10-15); White Blood Count 10.1 10^3/uL (3.5-10.8)
[2022-07-17] MEDS: Aspirin EC 81 mg TAB.EC (enteric coated) PO SCH (09:14)
[2022-07-17] MEDS: Nystatin TOP POWDER 15 GM BTL TOPICAL SCH (09:15)
[2022-07-17 09:22] LABS: Calcium 7.9 mg/dL (8.6-10.3); Magnesium 1.6 mg/dL (1.9-2.7); Potassium 3.8 mmol/L (3.5-5.0); eGFR CKD-EPI 100.8 (>60)
[2022-07-17 10:49] VITALS: BP 101/49
[2022-07-17] MEDS ORDERED: Magnesium Sulfate IV 3 GM in NS 0.9% 100 ml BAG 100 ML IVPB ONE (11:13)
[2022-07-17 12:33] LABS: Rapid COVID-19 Molecular Undetected (Undetected)
== END 2022-07-17 14:45 | DRG 690 ==
LOC: ED 16:40 → EDHOLD 07-12 01:21 → SUATTDRO 07-12 01:21 → MED 07-12 15:39
PROVIDERS: ADMIT Student in an Organized Health Care Education/Training Program; ATTEND Internal Medicine

== ENCOUNTER 2022-10-18 10:37 | Observation (INO) ==
[2022-10-18] MEDS ORDERED: NS 0.9% 1000 ml BAG 1,000 ML IV ONE ×3 (10:41→12:27)
[2022-10-18] MEDS ORDERED: Piperacillin/Tazobac ADVAN 3.375 GM in NS 0.9% 100 ml BAG 100 ML IV ONE (11:49)
[2022-10-18 11:52] LABS: ABS Lymphocytes 0.6 10^3/ul (1.0-4.8); ABS Monocytes 0.8 10^3/ul (0-0.8); ABS Neutrophils 12.6 10^3/ul (1.5-7.7); Hematocrit 36 % (42-52); Hemoglobin 11.7 g/dL (14.0-18.0); Lymphocyte % 4.2 %; Mean Corpuscular HGB Conc 33 g/dL (31-36); Mean Corpuscular Hemoglobin 28 pg (27-31); Mean Corpuscular Volume 86 fL (80-94); Mean Platelet Volume 9.4 fL (7.4-10.4); Platelet Count 190 10^3/uL (150-450); Red Blood Count 4.15 10^6 /uL (4.18-5.48); Red Cell Distribution Width 17 % (10-15)
[2022-10-18 12:35] LABS: Albumin 2.8 g/dL (3.2-5.2); Calcium 8.5 mg/dL (8.6-10.3); Magnesium 1.5 mg/dL (1.9-2.7); Potassium 3.4 mmol/L (3.5-5.0); Total Bilirubin 1.2 mg/dL (0.2-1.0)
[2022-10-18 12:41] LABS: Albumin/Globulin Ratio 1.2 (1-3); C Reactive Protein 176.31 mg/L (<8.01); Creatinine, Serum 0.91 mg/dL (0.67-1.17); Globulin 2.4 g/dL (2-4); Total Protein 5.2 g/dL (6.4-8.9); eGFR CKD-EPI 85.2 (>60)
[2022-10-18 14:02] LABS: High Sensitivity Troponin 1 Hr 10 pg/mL (<20)
[2022-10-18 15:01] LABS: Urine Appearance Cloudy; Urine Bilirubin Negative (Negative); Urine Blood 1+ (Negative); Urine Color Amber; Urine Glucose 1+(50 mg/dL) (Negative); Urine Ketones Negative (Negative); Urine Nitrite Positive (Negative); Urine Protein 1+(30 mg/dL) (Negative); Urine Specific Gravity 1.018 (1.002-1.030); Urine Urobilinogen Negative (Negative)
[2022-10-18 15:10] LABS: Urine Bacteria 1+ (Absent); Urine Red Blood Cell 3+(>10/hpf) (Absent); Urine White Blood Cell Trace(0-5/hpf) (Absent); Urine Yeast Present (Absent)
[2022-10-18] MEDS ORDERED: Magnesium Sulfate IV 3 GM in NS 0.9% 100 ml BAG 100 ML IVPB ONE (17:17)
[2022-10-18] MEDS ORDERED: Polyethylene Glycol 3350 17 GM PACKET PO PRN (17:42)
[2022-10-18] MEDS ORDERED: Albuterol/Ipratropium NEB.SOL (2.5/0.5 MG) 3 ML NEB.SOLN INH PRN (17:42)
[2022-10-18] MEDS ORDERED: Senna TAB 8.6 mg TAB PO PRN (17:42)
[2022-10-18] MEDS ORDERED: Lactated Ringers 1000 ml BAG 1,000 ML IV SCH (18:00)
[2022-10-18] MEDS ORDERED: Zosyn per Pharmacy NOTE FOLLOW UP SCH (18:00)
[2022-10-18] MEDS: Enoxaparin 40 MG/0.4 ML SYR SUBCUT SCH (19:20)
[2022-10-18] MEDS: ZOSYN 3.375 GM Q8H per EXTENDED INFUSION IV SCH (19:31)
[2022-10-18] MEDS: KCL 20 MEQ/100 ML IVPREMIX 20 MEQ/100 ML BAG IV SCH (22:50)
[2022-10-19] MEDS: KCL 20 MEQ/100 ML IVPREMIX 20 MEQ/100 ML BAG IV SCH (02:30)
[2022-10-19] MEDS: ZOSYN 3.375 GM Q8H per EXTENDED INFUSION IV SCH ×3 (02:32→17:08)
[2022-10-19 08:52] LABS: ABS Eosinophils 0.1 10^3/ul (0-0.6); ABS Lymphocytes 0.9 10^3/ul (1.0-4.8); ABS Monocytes 0.9 10^3/ul (0-0.8); ABS Neutrophils 9.1 10^3/ul (1.5-7.7); Eosinophil % 0.5 %; Hematocrit 29 % (42-52); Hemoglobin 9.4 g/dL (14.0-18.0); Mean Corpuscular HGB Conc 33 g/dL (31-36); Mean Corpuscular Hemoglobin 28 pg (27-31); Mean Corpuscular Volume 87 fL (80-94); Mean Platelet Volume 10.2 fL (7.4-10.4); Platelet Count 185 10^3/uL (150-450); Red Cell Distribution Width 17 % (10-15); White Blood Count 11.1 10^3/uL (3.5-10.8)
[2022-10-19 09:20] LABS: Blood Urea Nitrogen 14 mg/dL (6-24); CO2 Carbon Dioxide 29 mmol/L (22-32); Calcium 7.4 mg/dL (8.6-10.3); Chloride 104 mmol/L (101-111); Creatinine, Serum 0.56 mg/dL (0.67-1.17); Glucose 79 mg/dL (70-100); Sodium 138 mmol/L (135-145); eGFR CKD-EPI 99.6 (>60)
[2022-10-19 09:32] LABS: Anion Gap 5 mmol/L (2-11)
[2022-10-19] MEDS: Aspirin EC 81 mg TAB.EC (enteric coated) PO SCH (09:42)
[2022-10-19] MEDS: NF: Multivitamins/Minera Areds(NF) CAP PO SCH (09:43)
[2022-10-19] MEDS: NON FORMULARY MED (Cyanocobalamin (Vitamin B-12) [Vitamin B-12] 5,000 mcg Tablet, Sublingu SL SCH (09:43)
[2022-10-19 10:49] LABS: Magnesium 1.9 mg/dL (1.9-2.7); Potassium Redraw 3.7 mmol/L (3.5-5.0)
[2022-10-19] MEDS ORDERED: Potassium Chlor 20 meq TAB.ER PO ONE (14:31)
[2022-10-19 15:37] LABS: Ferritin 1157.5 ng/mL (24-336)
[2022-10-19] MEDS: Enoxaparin 40 MG/0.4 ML SYR SUBCUT SCH (21:12)
[2022-10-20] MEDS: ZOSYN 3.375 GM Q8H per EXTENDED INFUSION IV SCH ×2 (02:06→09:23)
[2022-10-20 08:41] LABS: Folate 6.65 ng/mL (5.90-24.80)
[2022-10-20 08:42] LABS: Vitamin B12 > 1450 pg/mL (180-914)
[2022-10-20] MEDS: Aspirin EC 81 mg TAB.EC (enteric coated) PO SCH (09:21)
[2022-10-20] MEDS: NON FORMULARY MED (Cyanocobalamin (Vitamin B-12) [Vitamin B-12] 5,000 mcg Tablet, Sublingu SL SCH (09:21)
[2022-10-20] MEDS: NF: Multivitamins/Minera Areds(NF) CAP PO SCH (09:27)
[2022-10-20 10:03] LABS: ABS Eosinophils 0.2 10^3/ul (0-0.6); ABS Lymphocytes 1.2 10^3/ul (1.0-4.8); ABS Monocytes 0.6 10^3/ul (0-0.8); ABS Neutrophils 6.1 10^3/ul (1.5-7.7); Eosinophil % 2.1 %; Hematocrit 31 % (42-52); Hemoglobin 10.4 g/dL (14.0-18.0); Lymphocyte % 14.8 %; Mean Corpuscular HGB Conc 33 g/dL (31-36); Mean Corpuscular Hemoglobin 29 pg (27-31); Mean Corpuscular Volume 88 fL (80-94); Mean Platelet Volume 9.9 fL (7.4-10.4); Platelet Count 200 10^3/uL (150-450); Red Blood Count 3.54 10^6 /uL (4.18-5.48); Red Cell Distribution Width 17 % (10-15)
[2022-10-20 12:33] LABS: Magnesium 1.5 mg/dL (1.9-2.7); Potassium 3.2 mmol/L (3.5-5.0)
[2022-10-20 13:34] VITALS: BP 148/64
== END 2022-10-20 14:35 ==
LOC: ED 10:37 → MEDTELE 10:37
PROVIDERS: ADMIT Internal Medicine; ATTEND Internal Medicine

== ENCOUNTER 2022-10-25 19:02 | Inpatient (IN) ==
[2022-10-25 20:48] LABS: ABS Eosinophils 0.3 10^3/ul (0-0.6); ABS Monocytes 0.9 10^3/ul (0-0.8); Eosinophil % 2.8 %; Hematocrit 30 % (42-52); Hemoglobin 10.1 g/dL (14.0-18.0); Lymphocyte % 11.3 %; Mean Corpuscular HGB Conc 33 g/dL (31-36); Mean Corpuscular Hemoglobin 29 pg (27-31); Mean Corpuscular Volume 86 fL (80-94); Mean Platelet Volume 8.4 fL (7.4-10.4); Nucleated Red Blood Cells % 0.1; Platelet Count 200 10^3/uL (150-450); Red Blood Count 3.52 10^6 /uL (4.18-5.48); Red Cell Distribution Width 17 % (10-15); White Blood Count 9.3 10^3/uL (3.5-10.8)
[2022-10-25 21:20] LABS: Albumin 2.5 g/dL (3.2-5.2); Albumin/Globulin Ratio 1.1 (1-3); C Reactive Protein 29.79 mg/L (<8.01); Calcium 7.8 mg/dL (8.6-10.3); Globulin 2.2 g/dL (2-4); Magnesium 1.3 mg/dL (1.9-2.7); Potassium 3.4 mmol/L (3.5-5.0); Total Bilirubin 0.6 mg/dL (0.2-1.0); Total Protein 4.7 g/dL (6.4-8.9); eGFR CKD-EPI 99.6 (>60)
[2022-10-25] MEDS ORDERED: Lactated Ringers 1000 ml BAG 1,000 ML IV ONE (22:22)
[2022-10-25 22:51] LABS: Urine Appearance Cloudy; Urine Bilirubin Negative (Negative); Urine Blood 2+ (Negative); Urine Color Yellow; Urine Glucose Negative (Negative); Urine Ketones Negative (Negative); Urine Nitrite Positive (Negative); Urine Protein Negative (Negative); Urine Specific Gravity 1.013 (1.002-1.030); Urine Urobilinogen Negative (Negative)
[2022-10-25 22:52] LABS: Activated Partial Thrombo Time 30.4 seconds (26.0-38.0); INR 1.25 (0.88-1.18); Urine Bacteria Absent (Absent); Urine Red Blood Cell 3+(>10/hpf) (Absent); Urine White Blood Cell 3+(>20/hpf) (Absent)
[2022-10-25 23:08] LABS: High Sensitivity Troponin 1 Hr 11 pg/mL (<20)
[2022-10-25] MEDS ORDERED: cefTRIAXone 2 gm/50 mL D5W 2 GM/50 ML BAG IV ONE (23:12)
[2022-10-26] MEDS ORDERED: Vancomycin per Pharmacy 1 EA NOTE FOLLOW UP PRN (01:49)
[2022-10-26] MEDS ORDERED: Vancomycin 1,500 MG in NS 0.9% 250 ml 250 ML IVPB ONE (02:00)
[2022-10-26] MEDS ORDERED: Magnesium Sulf 4 GM/100 ML IV 4,000 MG/100 ML BAG IVPB ONE (02:12)
[2022-10-26] MEDS: cefTRIAXone 1 gm/50 mL D5W 1 GM/50 ML BAG IV SCH ×2 (02:58→21:03)
[2022-10-26] MEDS ORDERED: Senna TAB 8.6 mg TAB PO PRN (05:46)
[2022-10-26] MEDS ORDERED: Polyethylene Glycol 3350 17 GM PACKET PO PRN (05:46)
[2022-10-26] MEDS: Enoxaparin 40 MG/0.4 ML SYR SUBCUT SCH (06:03)
[2022-10-26 06:25] LABS: Hematocrit 29 % (42-52); Hemoglobin 9.7 g/dL (14.0-18.0); Mean Corpuscular HGB Conc 34 g/dL (31-36); Mean Corpuscular Hemoglobin 29 pg (27-31); Mean Corpuscular Volume 85 fL (80-94); Mean Platelet Volume 8.8 fL (7.4-10.4); Platelet Count 187 10^3/uL (150-450); Red Blood Count 3.39 10^6 /uL (4.18-5.48); Red Cell Distribution Width 17 % (10-15); White Blood Count 7.8 10^3/uL (3.5-10.8)
[2022-10-26 06:56] LABS: Calcium 7.6 mg/dL (8.6-10.3); Magnesium 1.3 mg/dL (1.9-2.7); Potassium 3.3 mmol/L (3.5-5.0); eGFR CKD-EPI 103.1 (>60)
[2022-10-26] MEDS ORDERED: Potassium Chloride LIQUID 20 MEQ/15 ML LIQUID PO ONE ×2 (07:45→17:50)
[2022-10-26] MEDS: Albuterol/Ipratropium NEB.SOL (2.5/0.5 MG) 3 ML NEB.SOLN INH SCH ×2 (07:55→19:28)
[2022-10-26] MEDS ORDERED: Magnesium Sulfate IV 3 GM in NS 0.9% 100 ml BAG 100 ML IVPB ONE (08:15)
[2022-10-26 08:36] LABS: ABS Basophils 0.1 10^3/ul (0-0.2); ABS Eosinophils 0.3 10^3/ul (0-0.6); ABS Lymphocytes 1.7 10^3/ul (1.0-4.8); ABS Monocytes 0.9 10^3/ul (0-0.8); ABS Neutrophils 4.8 10^3/ul (1.5-7.7); Eosinophil % 4.3 %; Lymphocyte % 21.9 %; Nucleated Red Blood Cells % 0.1
[2022-10-26] MEDS: Aspirin EC 81 mg TAB.EC (enteric coated) PO SCH (09:58)
[2022-10-26] MEDS: NON FORMULARY MED (Cyanocobalamin (Vitamin B-12) [Vitamin B-12] 5,000 mcg Tablet, Sublingu SL SCH (10:07)
[2022-10-26] MEDS: Multivitamins/Minera Areds(NF) CAP PO SCH (10:07)
[2022-10-26] MEDS: Vancomycin 1000 MG in NS 0.9% 250 ML IVPB SCH (16:20)
[2022-10-27] MEDS: Vancomycin 1000 MG in NS 0.9% 250 ML IVPB SCH ×2 (04:31→16:55)
[2022-10-27] MEDS: Enoxaparin 40 MG/0.4 ML SYR SUBCUT SCH (05:59)
[2022-10-27] MEDS: Albuterol/Ipratropium NEB.SOL (2.5/0.5 MG) 3 ML NEB.SOLN INH SCH ×2 (07:19→19:37)
[2022-10-27] MEDS: Aspirin EC 81 mg TAB.EC (enteric coated) PO SCH (09:14)
[2022-10-27] MEDS: NON FORMULARY MED (Cyanocobalamin (Vitamin B-12) [Vitamin B-12] 5,000 mcg Tablet, Sublingu SL SCH (09:14)
[2022-10-27] MEDS: Multivitamins/Minera Areds(NF) CAP PO SCH (09:15)
[2022-10-27 09:46] LABS: Hematocrit 31 % (42-52); Hemoglobin 10.5 g/dL (14.0-18.0); Mean Corpuscular HGB Conc 34 g/dL (31-36); Mean Corpuscular Hemoglobin 29 pg (27-31); Mean Corpuscular Volume 86 fL (80-94); Mean Platelet Volume 8.2 fL (7.4-10.4); Platelet Count 212 10^3/uL (150-450); Red Blood Count 3.65 10^6 /uL (4.18-5.48); Red Cell Distribution Width 17 % (10-15); White Blood Count 8.1 10^3/uL (3.5-10.8)
[2022-10-27 10:27] LABS: Calcium 7.8 mg/dL (8.6-10.3); Potassium 3.8 mmol/L (3.5-5.0); eGFR CKD-EPI 101.9 (>60)
[2022-10-27 11:00] LABS: ABS Basophils 0.1 10^3/ul (0-0.2); ABS Eosinophils 0.6 10^3/ul (0-0.6); ABS Lymphocytes 1.2 10^3/ul (1.0-4.8); ABS Monocytes 0.8 10^3/ul (0-0.8); ABS Neutrophils 5.4 10^3/ul (1.5-7.7); Eosinophil % 7.4 %; Lymphocyte % 15.2 %
[2022-10-27] MEDS: Nitrofurantoin (monohydrate/macrocrystals) 100 mg CAP PO SCH ×2 (11:06→21:59)
[2022-10-27] MEDS: OLANZapine IM (NF) 10 MG VIAL IM ONE ×2 (14:46→17:53)
[2022-10-27] MEDS ORDERED: Vancomycin Trough Check NOTE FOLLOW UP ONE (15:30)
[2022-10-27 16:47] LABS: eGFR CKD-EPI 100.7 (>60)
[2022-10-27 18:42] LABS: ABS Basophils 0.1 10^3/ul (0-0.2); ABS Eosinophils 0.4 10^3/ul (0-0.6); ABS Lymphocytes 0.7 10^3/ul (1.0-4.8); ABS Monocytes 0.7 10^3/ul (0-0.8); ABS Neutrophils 6.2 10^3/ul (1.5-7.7); Eosinophil % 4.5 %; Hematocrit 30 % (42-52); Hemoglobin 9.7 g/dL (14.0-18.0); Lymphocyte % 8.8 %; Mean Corpuscular HGB Conc 33 g/dL (31-36); Mean Corpuscular Hemoglobin 28 pg (27-31); Mean Corpuscular Volume 86 fL (80-94); Mean Platelet Volume 8.5 fL (7.4-10.4); Nucleated Red Blood Cells % 0.1; Platelet Count 199 10^3/uL (150-450); Red Blood Count 3.47 10^6 /uL (4.18-5.48); Red Cell Distribution Width 17 % (10-15)
[2022-10-27 19:23] LABS: Albumin 2.5 g/dL (3.2-5.2); Albumin/Globulin Ratio 1.1 (1-3); Calcium 7.9 mg/dL (8.6-10.3); Globulin 2.2 g/dL (2-4); Magnesium 1.8 mg/dL (1.9-2.7); Phosphorus 2.7 mg/dL (2.5-5.0); Potassium 4.3 mmol/L (3.5-5.0); Total Bilirubin 0.7 mg/dL (0.2-1.0); Total Protein 4.7 g/dL (6.4-8.9); eGFR CKD-EPI 101.3 (>60)
[2022-10-27] MEDS ORDERED: OLANZapine IM (NF) 10 MG VIAL IM PRN (23:31)
[2022-10-28] MEDS: Vancomycin 1000 MG in NS 0.9% 250 ML IVPB SCH (03:51)
[2022-10-28] MEDS: Enoxaparin 40 MG/0.4 ML SYR SUBCUT SCH (04:21)
[2022-10-28 06:20] LABS: Hematocrit 28 % (42-52); Hemoglobin 9.5 g/dL (14.0-18.0); Mean Corpuscular HGB Conc 34 g/dL (31-36); Mean Corpuscular Hemoglobin 29 pg (27-31); Mean Corpuscular Volume 86 fL (80-94); Mean Platelet Volume 8.5 fL (7.4-10.4); Platelet Count 195 10^3/uL (150-450); Red Cell Distribution Width 18 % (10-15)
[2022-10-28 06:55] LABS: Calcium 7.8 mg/dL (8.6-10.3); Phosphorus 2.9 mg/dL (2.5-5.0); Potassium 3.7 mmol/L (3.5-5.0); eGFR CKD-EPI 98.1 (>60)
[2022-10-28] MEDS ORDERED: Magnesium Sulfate 2 gm BAG 2 GM/50 ML BAG IVPB ONE (07:18)
[2022-10-28 07:50] LABS: Anisocytosis 1+; Basophilic Stippling 1+; Burr Cells 1+; Schistocytes 1+
[2022-10-28 07:51] LABS: ABS Basophils 0.1 10^3/ul (0-0.2); ABS Eosinophils 0.5 10^3/ul (0-0.6); ABS Lymphocytes 1.5 10^3/ul (1.0-4.8); ABS Monocytes 0.9 10^3/ul (0-0.8); Eosinophil % 6.2 %; Lymphocyte % 18.6 %; Nucleated Red Blood Cells % 0.1
[2022-10-28] MEDS: Albuterol/Ipratropium NEB.SOL (2.5/0.5 MG) 3 ML NEB.SOLN INH SCH ×2 (08:05→19:48)
[2022-10-28] MEDS: Aspirin EC 81 mg TAB.EC (enteric coated) PO SCH (09:20)
[2022-10-28] MEDS: Nitrofurantoin (monohydrate/macrocrystals) 100 mg CAP PO SCH ×2 (09:20→19:38)
[2022-10-28] MEDS: NON FORMULARY MED (Cyanocobalamin (Vitamin B-12) [Vitamin B-12] 5,000 mcg Tablet, Sublingu SL SCH (09:21)
[2022-10-28] MEDS: Multivitamins/Minera Areds(NF) CAP PO SCH (09:21)
[2022-10-29] MEDS: Enoxaparin 40 MG/0.4 ML SYR SUBCUT SCH (05:48)
[2022-10-29] MEDS: Albuterol/Ipratropium NEB.SOL (2.5/0.5 MG) 3 ML NEB.SOLN INH SCH ×2 (08:24→19:52)
[2022-10-29] MEDS: Aspirin EC 81 mg TAB.EC (enteric coated) PO SCH (09:36)
[2022-10-29] MEDS: Nitrofurantoin (monohydrate/macrocrystals) 100 mg CAP PO SCH ×2 (09:36→21:47)
[2022-10-29] MEDS: NON FORMULARY MED (Cyanocobalamin (Vitamin B-12) [Vitamin B-12] 5,000 mcg Tablet, Sublingu SL SCH (09:58)
[2022-10-29] MEDS: Multivitamins/Minera Areds(NF) CAP PO SCH (09:58)
[2022-10-30] MEDS: Enoxaparin 40 MG/0.4 ML SYR SUBCUT SCH (05:55)
[2022-10-30 07:44] LABS: Hematocrit 29 % (42-52); Hemoglobin 9.5 g/dL (14.0-18.0); Mean Corpuscular HGB Conc 33 g/dL (31-36); Mean Corpuscular Hemoglobin 28 pg (27-31); Mean Corpuscular Volume 86 fL (80-94); Mean Platelet Volume 8.3 fL (7.4-10.4); Platelet Count 190 10^3/uL (150-450); Red Blood Count 3.35 10^6 /uL (4.18-5.48); Red Cell Distribution Width 17 % (10-15); White Blood Count 7.9 10^3/uL (3.5-10.8)
[2022-10-30] MEDS: Albuterol/Ipratropium NEB.SOL (2.5/0.5 MG) 3 ML NEB.SOLN INH SCH ×2 (07:47→20:21)
[2022-10-30] MEDS: Aspirin EC 81 mg TAB.EC (enteric coated) PO SCH (09:01)
[2022-10-30] MEDS: Multivitamins/Minera Areds(NF) CAP PO SCH (09:02)
[2022-10-30] MEDS: NON FORMULARY MED (Cyanocobalamin (Vitamin B-12) [Vitamin B-12] 5,000 mcg Tablet, Sublingu SL SCH (09:02)
[2022-10-30] MEDS: Nitrofurantoin (monohydrate/macrocrystals) 100 mg CAP PO SCH ×2 (09:02→22:33)
[2022-10-30 15:58] LABS: eGFR CKD-EPI 100.2 (>60)
[2022-10-30 18:08] LABS: Rapid COVID-19 Molecular Undetected (Undetected)
[2022-10-31] MEDS: Enoxaparin 40 MG/0.4 ML SYR SUBCUT SCH (06:05)
[2022-10-31] MEDS: Albuterol/Ipratropium NEB.SOL (2.5/0.5 MG) 3 ML NEB.SOLN INH SCH ×2 (07:28→19:18)
[2022-10-31] MEDS: Aspirin EC 81 mg TAB.EC (enteric coated) PO SCH (10:14)
[2022-10-31] MEDS: Nitrofurantoin (monohydrate/macrocrystals) 100 mg CAP PO SCH (10:14)
[2022-10-31] MEDS: Multivitamins/Minera Areds(NF) CAP PO SCH (10:15)
[2022-10-31] MEDS: NON FORMULARY MED (Cyanocobalamin (Vitamin B-12) [Vitamin B-12] 5,000 mcg Tablet, Sublingu SL SCH (10:15)
[2022-10-31] MEDS ORDERED: Haloperidol 5 mg/ml SDV IV/IM 5 MG/ML AMP IV SLOW PU ONE (12:59)
[2022-10-31 20:15] VITALS: BP 116/53
== END 2022-10-31 20:27 | DRG 91 ==
LOC: EDHOLD 19:02 → ED 19:02 → SUATTDRO 23:48 → EDHOLD 10-26 01:14 → MED 10-26 01:30 → SUATTDRO 10-27 11:01
PROVIDERS: ADMIT Internal Medicine; ATTEND Hospitalist